=== PATIENT | female | born 1955 | race Caucasian/White ===

== ENCOUNTER 2020-03-21 12:18 | Outpatient (REF) | payer MEDICARE, OTHER, SELFPAY ==
[2020-03-21 13:44] LABS: Estimated Average Glucose 151 mg/dL; Hemoglobin A1c % 6.9 %
== END 2020-03-21 12:19 | disposition home or self-care (01) ==
LOC: HO.MANLR 12:18
PROVIDERS: PCP Physician Assistant; Visit Provider Physician Assistant
DX: E11.9 Type 2 diabetes mellitus without complications (principal); E78.5 Hyperlipidemia, unspecified
CPT/HCPCS: 83036

== ENCOUNTER 2020-06-27 08:23 | Outpatient (REF) | payer MEDICARE, OTHER, SELFPAY ==
[2020-06-27 11:34] LABS: Estimated Average Glucose 148 mg/dL; Hemoglobin A1c % 6.8 %
[2020-06-27 11:45] LABS: Alanine Aminotransferase 13 U/L (0-31); Albumin Level 4.1 g/dL (3.5-5.0); Alkaline Phosphatase 54 U/L (39-117); Anion Gap 15 (12-20); Aspartate Amino Transferase 14 U/L (5-31); Bilirubin Total 0.6 mg/dL (0.0-1.0); Blood Urea Nitrogen 16 mg/dL (9-16); Carbon Dioxide 29 mmol/L (22-29); Chloride 101 mmol/L (96-108); Cholesterol 171 mg/dL; Estimated Glomerular Filt Rate > 60; Glucose Fasting 125 mg/dL (60-99); HDL Cholesterol 64 mg/dL; LDL Cholesterol Calculated 87 mg/dl; Potassium 4.4 mmol/L (3.3-5.1); Sodium 141 mmol/L (135-145); Total Protein 7.4 g/dL (6.5-8.0); Triglycerides 104 mg/dL
== END 2020-06-27 08:24 | disposition home or self-care (01) ==
LOC: HO.MANLR 08:23
PROVIDERS: PCP Internal Medicine; Visit Provider Physician Assistant
DX: E11.9 Type 2 diabetes mellitus without complications (principal); E78.5 Hyperlipidemia, unspecified
CPT/HCPCS: 36415; 80053; 80061; 83036

== ENCOUNTER 2020-10-15 07:34 | Outpatient (REF) | payer MEDICARE, OTHER, SELFPAY ==
[2020-10-15 11:23] LABS: Estimated Average Glucose 146 mg/dL; Hemoglobin A1c % 6.7 %
[2020-10-15 11:30] LABS: Alanine Aminotransferase 15 U/L (0-31); Albumin Level 4.2 g/dL (3.5-5.0); Alkaline Phosphatase 51 U/L (39-117); Anion Gap 15 (12-20); Aspartate Amino Transferase 15 U/L (5-31); Bilirubin Total 0.7 mg/dL (0.0-1.0); Blood Urea Nitrogen 19 mg/dL (9-16); Calcium 9.3 mg/dL (8.4-10.2); Carbon Dioxide 28 mmol/L (22-29); Chloride 103 mmol/L (96-108); Cholesterol 172 mg/dL; Estimated Glomerular Filt Rate > 60; Glucose Fasting 127 mg/dL (60-99); HDL Cholesterol 74 mg/dL; LDL Cholesterol Calculated 79 mg/dl; Potassium 4.3 mmol/L (3.3-5.1); Sodium 142 mmol/L (135-145); Total Protein 7.3 g/dL (6.5-8.0); Triglycerides 98 mg/dL
[2020-10-15 12:05] LABS: Creatinine Urine 54.16 mg/dL; Microalbum/Creatinine Ratio Ur 20.3 ug/mg cr
== END 2020-10-15 07:35 | disposition home or self-care (01) ==
LOC: HO.MANLDS 07:34
PROVIDERS: PCP Internal Medicine; Visit Provider Physician Assistant
DX: E11.9 Type 2 diabetes mellitus without complications (principal)
CPT/HCPCS: 36415; 80053; 80061; 82043; 83036

== ENCOUNTER 2021-02-11 07:34 | Outpatient (REF) | payer MEDICARE, OTHER, SELFPAY ==
[2021-02-11 11:06] LABS: Estimated Average Glucose 140 mg/dL; Hemoglobin A1c % 6.5 %
== END 2021-02-11 07:35 | disposition home or self-care (01) ==
LOC: HO.MANLDS 07:34
PROVIDERS: PCP Internal Medicine; Visit Provider Internal Medicine
DX: E11.9 Type 2 diabetes mellitus without complications (principal)
CPT/HCPCS: 36415; 83036

== ENCOUNTER 2021-06-10 07:31 | Outpatient (REF) | payer MEDICARE, OTHER, SELFPAY ==
[2021-06-10 11:12] LABS: Estimated Average Glucose 146 mg/dL; Hemoglobin A1c % 6.7 %
== END 2021-06-10 07:32 | disposition home or self-care (01) ==
LOC: HO.MANLDS 07:31
PROVIDERS: PCP Internal Medicine; Visit Provider Internal Medicine
DX: E11.9 Type 2 diabetes mellitus without complications (principal)
CPT/HCPCS: 36415; 83036

== ENCOUNTER 2021-09-09 07:40 | Outpatient (REF) | payer MEDICARE, OTHER, SELFPAY ==
[2021-09-09 11:57] LABS: Estimated Average Glucose 146 mg/dL; Hemoglobin A1c % 6.7 %
[2021-09-09 12:35] LABS: Alanine Aminotransferase 14 U/L (0-31); Albumin Level 4.2 g/dL (3.5-5.0); Alkaline Phosphatase 51 U/L (39-117); Anion Gap 16 (12-20); Aspartate Amino Transferase 17 U/L (5-31); Bilirubin Total 0.7 mg/dL (0.0-1.0); Blood Urea Nitrogen 19 mg/dL (9-16); Calcium 9.6 mg/dL (8.4-10.2); Carbon Dioxide 26 mmol/L (22-29); Chloride 101 mmol/L (96-108); Cholesterol 169 mg/dL; Estimated Glomerular Filt Rate > 60; Glucose Fasting 130 mg/dL (60-99); HDL Cholesterol 69 mg/dL; LDL Cholesterol Calculated 82 mg/dl; Potassium 4.4 mmol/L (3.3-5.1); Sodium 139 mmol/L (135-145); Total Protein 7.5 g/dL (6.5-8.0); Triglycerides 90 mg/dL
== END 2021-09-09 07:41 | disposition home or self-care (01) ==
LOC: HO.MANLDS 07:40
PROVIDERS: PCP Internal Medicine; Visit Provider Internal Medicine
DX: E11.9 Type 2 diabetes mellitus without complications (principal)
CPT/HCPCS: 36415; 80053; 80061; 82043; 83036

== ENCOUNTER 2022-01-20 07:57 | Outpatient (REF) | payer MEDICARE, OTHER, SELFPAY ==
[2022-01-20 11:52] LABS: Estimated Average Glucose 140 mg/dL; Hemoglobin A1c % 6.5 %
[2022-01-20 12:13] LABS: Alanine Aminotransferase 13 U/L (0-31); Alkaline Phosphatase 49 U/L (39-117); Anion Gap 17 (12-20); Aspartate Amino Transferase 12 U/L (5-31); Bilirubin Total 0.7 mg/dL (0.0-1.0); Blood Urea Nitrogen 16 mg/dL (9-16); Calcium 9.3 mg/dL (8.4-10.2); Carbon Dioxide 27 mmol/L (22-29); Chloride 103 mmol/L (96-108); Cholesterol 171 mg/dL; Estimated Glomerular Filt Rate > 60; Glucose Random 147 mg/dL (60-115); HDL Cholesterol 66 mg/dL; LDL Cholesterol Calculated 87 mg/dl; Potassium 4.7 mmol/L (3.3-5.1); Sodium 142 mmol/L (135-145); Total Protein 7.4 g/dL (6.5-8.0); Triglycerides 92 mg/dL
== END 2022-01-20 07:58 | disposition home or self-care (01) ==
LOC: HO.MANLDS 07:57
PROVIDERS: Visit Provider Internal Medicine
DX: E11.9 Type 2 diabetes mellitus without complications (principal)
CPT/HCPCS: 36415; 80053; 80061; 83036

== ENCOUNTER 2022-07-07 07:35 | Outpatient (REF) | payer MEDICARE, OTHER, SELFPAY ==
[2022-07-07 12:15] LABS: Estimated Average Glucose 143 mg/dL; Hemoglobin A1c % 6.6 %
[2022-07-07 12:50] LABS: Alanine Aminotransferase 10 U/L (0-31); Albumin Level 3.9 g/dL (3.5-5.0); Alkaline Phosphatase 50 U/L (39-117); Anion Gap 11 (12-20); Aspartate Amino Transferase 13 U/L (5-31); Bilirubin Total 0.9 mg/dL (0.0-1.0); Blood Urea Nitrogen 15 mg/dL (9-16); Calcium 9.1 mg/dL (8.4-10.2); Carbon Dioxide 28 mmol/L (22-29); Chloride 106 mmol/L (96-108); Cholesterol 168 mg/dL; Estimated Glomerular Filt Rate > 60; Glucose Random 130 mg/dL (60-115); HDL Cholesterol 69 mg/dL; LDL Cholesterol Calculated 84 mg/dl; Potassium 4.2 mmol/L (3.3-5.1); Sodium 141 mmol/L (135-145); Total Protein 6.8 g/dL (6.5-8.0); Triglycerides 76 mg/dL
== END 2022-07-07 07:36 | disposition home or self-care (01) ==
LOC: HO.MANLDS 07:35
PROVIDERS: Visit Provider Internal Medicine
DX: E11.9 Type 2 diabetes mellitus without complications (principal)
CPT/HCPCS: 36415; 80053; 80061; 83036

== ENCOUNTER 2022-11-03 07:47 | Outpatient (REF) | payer MEDICARE, OTHER, SELFPAY ==
[2022-11-03 12:07] LABS: Alanine Aminotransferase 11 U/L (0-31); Albumin Level 3.9 g/dL (3.5-5.0); Alkaline Phosphatase 48 U/L (39-117); Anion Gap 15 (12-20); Aspartate Amino Transferase 14 U/L (5-31); Bilirubin Total 0.9 mg/dL (0.0-1.0); Blood Urea Nitrogen 17 mg/dL (9-16); Calcium 9.8 mg/dL (8.4-10.2); Carbon Dioxide 26 mmol/L (22-29); Chloride 104 mmol/L (96-108); Cholesterol 172 mg/dL; Estimated Glomerular Filt Rate > 60; Glucose Random 135 mg/dL (60-115); HDL Cholesterol 69 mg/dL; LDL Cholesterol Calculated 86 mg/dl; Potassium 3.9 mmol/L (3.3-5.1); Sodium 141 mmol/L (135-145); Total Protein 7.5 g/dL (6.5-8.0); Triglycerides 89 mg/dL
[2022-11-03 12:14] LABS: Creatinine Urine 70.17 mg/dL; Microalbum/Creatinine Ratio Ur 22.8 ug/mg cr
[2022-11-03 14:26] LABS: Estimated Average Glucose 137 mg/dL; Hemoglobin A1c % 6.4 %
== END 2022-11-03 07:48 | disposition home or self-care (01) ==
LOC: HO.MANLDS 07:47
PROVIDERS: Visit Provider Internal Medicine
DX: E11.9 Type 2 diabetes mellitus without complications (principal)
CPT/HCPCS: 36415; 80053; 80061; 82043; 83036

== ENCOUNTER 2023-02-16 07:39 | Outpatient (REF) | payer MEDICARE, OTHER, SELFPAY ==
[2023-02-16 13:34] LABS: Estimated Average Glucose 137 mg/dL; Hemoglobin A1c % 6.4 % (<6.0)
== END 2023-02-16 07:40 | disposition home or self-care (01) ==
LOC: HO.MANLDS 07:39
PROVIDERS: Visit Provider Internal Medicine
DX: E11.9 Type 2 diabetes mellitus without complications (principal)
CPT/HCPCS: 36415; 83036

== ENCOUNTER 2023-06-01 07:34 | Outpatient (REF) | payer MEDICARE, OTHER, SELFPAY ==
[2023-06-01 14:09] LABS: Estimated Average Glucose 131 mg/dL; Hemoglobin A1c % 6.2 % (<6.0)
== END 2023-06-01 07:35 | disposition home or self-care (01) ==
LOC: HO.MANLDS 07:34
PROVIDERS: Visit Provider Internal Medicine
DX: E11.9 Type 2 diabetes mellitus without complications (principal); I10 Essential (primary) hypertension
CPT/HCPCS: 36415; 83036

== ENCOUNTER 2023-10-26 07:40 | Outpatient (REF) | payer MEDICARE, OTHER, SELFPAY ==
[2023-10-28 09:08] LABS: CA-125 7 U/mL (<35)
== END 2023-10-26 07:41 | disposition home or self-care (01) ==
LOC: HO.MANLDS 07:40
PROVIDERS: Visit Provider Internal Medicine
DX: Z13.89 Encounter for screening for other disorder (principal); Z80.41 Family history of malignant neoplasm of ovary
CPT/HCPCS: 36415; 83036; 86304

== ENCOUNTER 2024-02-15 09:20 | Outpatient (REF) | payer MEDICARE, OTHER, SELFPAY ==
[2024-02-15 13:35] LABS: MANUAL DIFF FLAG NO
[2024-02-15 13:55] LABS: Basophils Percent Auto 0.5 % (0-2); Eosinophils Absolute Auto 0.1 X10*3/uL (0.0-0.4); Eosinophils Percent Auto 2.2 % (0-4); Hematocrit 41.2 % (37.0-47.0); Hemoglobin 13.4 g/dl (12.0-16.0); Imm Gran Abs Auto 0.02 X10*3/uL (0.00-0.03); Imm Gran Pct Auto 0.3 % (0.0-0.4); Lymphocytes Absolute Auto 2.5 X10*3/uL (1.2-4.9); Lymphocytes Percent Auto 42.1 % (20-40); Mean Corpuscular HGB Conc 32.5 g/dl (31.0-35.0); Mean Corpuscular Volume 83.1 fL (80.0-98.0); Monocytes Absolute Auto 0.5 X10*3/uL (0.1-1.2); Monocytes Percent Auto 8.1 % (2-11); Neutrophils Absolute Auto 2.8 x10*3/uL (2.0-8.3); Neutrophils Percent Auto 46.8 % (45-73); Red Blood Count 4.96 X10*6/uL (4.20-5.50); Red Cell Distribution Width 13.8 % (11.0-16.0)
[2024-02-15 14:11] LABS: Alanine Aminotransferase 12 U/L (0-31); Albumin Level 4.3 g/dL (3.5-5.0); Alkaline Phosphatase 46 U/L (39-117); Anion Gap 13 (12-20); Aspartate Amino Transferase 17 U/L (5-31); Bilirubin Total 0.6 mg/dL (0.0-1.0); Blood Urea Nitrogen 20 mg/dL (9-16); Calcium 9.6 mg/dL (8.4-10.2); Carbon Dioxide 27 mmol/L (22-29); Chloride 105 mmol/L (96-108); Cholesterol 172 mg/dL (<200); Estimated Glomerular Filt Rate > 60; Glucose Random 122 mg/dL (60-115); HDL Cholesterol 75 mg/dL (>40); LDL Cholesterol Calculated 80 mg/dL (<100); Potassium 4.1 mmol/L (3.3-5.1); Sodium 141 mmol/L (135-145); Total Protein 7.9 g/dL (6.5-8.0); Triglycerides 88 mg/dL (<150)
[2024-02-15 14:36] LABS: Estimated Average Glucose 134 mg/dL; Hemoglobin A1C 149.9896 umol/L; Hemoglobin A1c % 6.3 % (<6.0)
[2024-02-15 18:27] LABS: Mean Platelet Volume 10.6 fL (9.4-12.3); Platelet Count 90 X10*3/uL (160-400)
== END 2024-02-15 09:21 | disposition home or self-care (01) ==
LOC: HO.MANLDS 09:20
PROVIDERS: Visit Provider Internal Medicine
DX: E11.9 Type 2 diabetes mellitus without complications (principal); I10 Essential (primary) hypertension; E78.5 Hyperlipidemia, unspecified
CPT/HCPCS: 36415; 80053; 80061; 83036; 85025

== ENCOUNTER 2024-08-22 07:33 | Outpatient (REF) | payer MEDICARE, OTHER, SELFPAY ==
--- OUTSIDE RECORDS SUMMARY | 2024-08-22 07:38 | XMS_ITS | Data Portability ---
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) MDM MODERATE MUST MEET 2 OUT OF 3 ELEMENTS: PROBLEMS, DATA OR RISK ELEMENT 1: PROBLEMS ADDRESSED 1 OR MORE CHRONIC ILLNESS WITH EXACERBATION OR 2 OR MORE STABLE CHRONIC ILLNESSES OR 1 UNDIAGNOSED NEW PROBLEM OR 1 ACUTE ILLNESS W/SYMPTOMS OR 1 ACUTE COMPLICATED INJURY ELEMENT 2: DATA MUST MEET 1 OF 3 CATEGORIES CATEGORY 1: REVIEW OF PRIOR EXTERNAL NOTES, REVIEW OF RESULTS, ORDERING OF EACH TEST, ASSESSMENT REQUIRING INDEPENDENT HISTORIAN OR CATEGORY 2: INDEPENDENT INTERPRETATION OF TESTS BY ANOTHER PHYSICIAN OR SPECIALIST OR CATEGORY 3: DISCUSSION OF MGT OR TEST INTERPRETATION W/EXTERNAL PHYSICIAN OR SPECIALIST ELEMENT 3: RISK RISK OF COMPLICATIONS AND/OR MORBIDITY OR MORTALITY OF PATIENT MANAGEMENT PROVIDER MUST THOROUGHLY DOCUMENT EACH ELEMENT THAT IS COVERED Not available 01/31/2023 12:43:30 06/13/2023 06/13/2023 [id number] [place] [id number] (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) MDM MODERATE MUST MEET 2 OUT OF 3 ELEMENTS: PROBLEMS, DATA OR RISK ELEMENT 1: PROBLEMS ADDRESSED 1 OR MORE CHRONIC ILLNESS WITH EXACERBATION OR 2 OR MORE STABLE CHRONIC ILLNESSES OR 1 UNDIAGNOSED NEW PROBLEM OR 1 ACUTE ILLNESS W/SYMPTOMS OR 1 ACUTE COMPLICATED INJURY ELEMENT 2: DATA MUST MEET 1 OF 3 CATEGORIES CATEGORY 1: REVIEW OF PRIOR EXTERNAL NOTES, REVIEW OF RESULTS, ORDERING OF EACH TEST, ASSESSMENT REQUIRING INDEPENDENT HISTORIAN OR CATEGORY 2: INDEPENDENT INTERPRETATION OF TESTS BY ANOTHER PHYSICIAN OR SPECIALIST OR CATEGORY 3: DISCUSSION OF MGT OR TEST INTERPRETATION W/EXTERNAL PHYSICIAN OR SPECIALIST ELEMENT 3: RISK RISK OF COMPLICATIONS AND/OR MORBIDITY OR MORTALITY OF PATIENT MANAGEMENT PROVIDER MUST THOROUGHLY DOCUMENT EACH ELEMENT THAT IS COVERED Not available 06/13/2023 14:09:05 11/07/2023 11/07/2023 [id number] [place] [id number] (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) MDM MODERATE MUST MEET 2 OUT OF 3 ELEMENTS: PROBLEMS, DATA OR RISK ELEMENT 1: PROBLEMS ADDRESSED 1 OR MORE CHRONIC ILLNESS WITH EXACERBATION OR 2 OR MORE STABLE CHRONIC ILLNESSES OR 1 UNDIAGNOSED NEW PROBLEM OR 1 ACUTE ILLNESS W/SYMPTOMS OR 1 ACUTE COMPLICATED INJURY ELEMENT 2: DATA MUST MEET 1 OF 3 CATEGORIES CATEGORY 1: REVIEW OF PRIOR EXTERNAL NOTES, REVIEW OF RESULTS, ORDERING OF EACH TEST, ASSESSMENT REQUIRING INDEPENDENT HISTORIAN OR CATEGORY 2: INDEPENDENT INTERPRETATION OF TESTS BY ANOTHER PHYSICIAN OR SPECIALIST OR CATEGORY 3: DISCUSSION OF MGT OR TEST INTERPRETATION W/EXTERNAL PHYSICIAN OR SPECIALIST ELEMENT 3: RISK RISK OF COMPLICATIONS AND/OR MORBIDITY OR MORTALITY OF PATIENT MANAGEMENT PROVIDER MUST THOROUGHLY DOCUMENT EACH ELEMENT THAT IS COVERED Not available 11/07/2023 15:22:46 03/05/2024 03/05/2024 Patient presente d to office today for their Medicare Annual Wellness Visit. Education was provided on healthy nutrition, including a diet rich in fruits and vegetables, minimizing simple carbohydrates, salt, and saturated fats. Encouraged regular cardiovascular exercise such as walking at least 30 minutes daily, 5 times per week. Emphasized preventive health measures and educated pt on fall prevention and community-based lifestyle interventions to help reduce health risks and promote healthy living. 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) MDM MODERATE MUST MEET 2 OUT OF 3 ELEMENTS: PROBLEMS, DATA OR RISK ELEMENT 1: PROBLEMS ADDRESSED 1 OR MORE CHRONIC ILLNESS WITH EXACERBATION OR 2 OR MORE STABLE CHRONIC ILLNESSES OR 1 UNDIAGNOSED NEW PROBLEM OR 1 ACUTE ILLNESS W/SYMPTOMS OR 1 ACUTE COMPLICATED INJURY ELEMENT 2: DATA MUST MEET 1 OF 3 CATEGORIES CATEGORY 1: REVIEW OF PRIOR EXTERNAL NOTES, REVIEW OF RESULTS, ORDERING OF EACH TEST, ASSESSMENT REQUIRING INDEPENDENT HISTORIAN OR CATEGORY 2: INDEPENDENT INTERPRETATION OF TESTS BY ANOTHER PHYSICIAN OR SPECIALIST OR CATEGORY 3: DISCUSSION OF MGT OR TEST INTERPRETATION W/EXTERNAL PHYSICIAN OR SPECIALIST ELEMENT 3: RISK RISK OF COMPLICATIONS AND/OR MORBIDITY OR MORTALITY OF PATIENT MANAGEMENT PROVIDER MUST THOROUGHLY DOCUMENT EACH ELEMENT THAT IS COVERED Not available 06/06/2024 14:43:57 Plan of Treatment Reminders Order Date Submit Date Provider Last Modified By Organization Details Last Modified Time Details Appointments FOLLOW UP 15 2024 03:30P Fili MCCRAY Not available Not available Not available MEDICARE ANNUAL WELLNESS 2024 03:30P M DR MCCRAY Not available Not available Not available Lab lipid panel, blood 2023 024 [facility], [address] [place] [address], [id number], 03/05/2024 14:14:35 HbA1c (hemoglob in A1c), blood 2023 024 [facility], [address] [place] [address], [id number], 03/05/2024 14:24:59 CBC w/ auto diff 2023 024 [facility], [address] [place] [address], [id number], 03/05/2024 14:14:35 CMP, serum or plasma 2023 024 [facility], [address] [place] [address], [id number], 06/05/2024 14:45:23 HbA1c (hemoglob in A1c), blood 2023 024 [facility], [address] [place] [address], [id number], 06/13/2023 14:11:07 CMP, serum or plasma 2023 024 [facility], [address] [place] [address], [id number], 06/13/2023 14:07:55 ca 125, serum 2023 024 [facility], [address] [place] [address], [id number], 10/28/2023 11:29:37 CBC w/ auto diff 2023 024 [facility], [address] [place] [address], [id number], 06/13/2023 14:07:55 lipid panel, blood 2023 [facility], [address] [place] [address], [place], [id number], 06/13/2023 14:07:55 Referral None recorded. Procedures None recorded. Surgeries None recorded. Imaging MAMMO, screening , digital, bilateral 2023 [email or web address] Not available 03/19/2024 08:15:17 bone density 2023 024 [facility] Not available 03/19/2024 08:15:17 bone density 2023 [email or web address] Not available 06/27/2023 08:57:14 Medication Orders EpiPen 2-Tomasz 0.3 mg/0.3 mL injection , auto-inje ctor 2023 [id number], [address] [place] [address], [id number], 11/07/2023 15:26:29 OneTouch Ultra Test strips 2023 024 [facility], [facility], [place], [address], 11/07/2023 15:24:25 folic acid 400 mcg tablet 2023 024 [facility], [place], [address], 11/07/2023 15:24:25 Patient TargetsNo targets recorded. Patient Instructions Encounter Date Encounter Id Patient Instructions Last Modified By Organization Details Last Modified Time 06/13/2023 [id number] osteoporosis: care instructions Not available 06/13/2023 14:06:24 03/05/2024 [id number] type 2 diabetes: care instructions Not available 03/05/2024 14:13:17 advance care planning: care instructions Not available 03/05/2024 14:13:17 Discussed and explained advance directives such as standard forms to the {{patient* caregi khushboo patient and caregiver}}. Face to face discussion lasted for a duration of 10___ minutes. Not available 03/05/2024 14:13:00 Reason for Referral None Reported. Results Created Date Observation Date Name Description Value Unit Range Abnormal Flag Note LastModifiedBy Organization Detail LastModifiedTime 03/10/2003/07/2023 MAMMO , scree cristino, digit al, bilat eral No observ ation record ed. [address], [address], 03/10/2023 15:31:24 03/23/20 24 03/22/2024 MAMMO , scree cristino, digit al, bilat eral No observ ation record ed. [email or web address] - Callback Orders Only [address] [place] [address], [id number], 03/23/2024 09:04:18 Result Notes None recorded. Problems Name Problem SNOMED Code Status Onset Date Resolution Date Notes Provider Name and Address Organization Details Recorded Time Recurren t urinary tract infectio n 845410461 Active 2021 Erica price [facility] 4 09:41:09 Osteopen ia 813448260 Completed 202106/13/2023 Raheem Mccray DO [address] [place] [address], [phone], [facility] 4 14:00:15 Osteopor osis 09868081 Active 2022 Erica price [facility] 4 09:41:09 Type 2 diabetes mellitus without complica tion 349243399 Active 2023 Erica price [facility] 4 09:41:09 Allergic reaction to bee sting 995191325 Active 2023 Raheem Mccray DO [address] [place] [address], [phone], [facility] 4 15:25:49 [facility] hyperten gilberto 40511482 Active 2017 [facility] 4 09:41:09 Hyperlip idemia 03809052 Active 2017 [facility] 4 09:41:09 Type 2 diabetes mellitus 45441198 Active 2017 [facility] 4 09:41:09 Allergy to bee venom 192234761 Active 2017 [facility] 4 09:40:56 Obesity 726086768 Active 2017 [facility] 4 09:41:09 Fracture of ankle 04294687 Completed 201706/13/2023 with pins Raheem Mccray, DO [address] [place] [address], [phone], [facility] 4 14:00:26 Arthriti s 0271593 Active 2017 Right ankle [facility] 4 09:41:09 Ulcer of medial malleolu s 590526337 Active 2017 ankle [facility] 4 09:41:09 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 Procedures Surgical History None recorded. Imaging Results Imaging Date Name Status LastModified by Organiz ation Details LastModified Time 03/07/2023 MAMMO, screening, digital, bilateral completed [address], [address], 03/10/2023 15:31:24 03/22/2024 MAMMO, screening, digital, bilateral completed [email or web address] [facility] - Callback Orders Only [address] [place], [address], 03/23/2024 09:04:18 Procedure Notes None recorded. Medical Equipment None Reported. Allergies No known drug allergies Medications Name Sig Start Date Stop Date Status Note LastModified by Organization Details LastModified Time Prescriptio n - Change 05/24 completed Not Available Not Available Not Available cyclobenzap rine 10 mg tablet TAKE 1 TABLET BY MOUTH TWICE DAILY NEEDED active Not Available Not Available No t Available metformin 500 mg tablet TAKE 1 TABLET TWICE A DAY active Not Available Not Available No t Available lisinopril 20 mg tablet TAKE 1 TABLET DAILY 2024 active Not Available Not Available Not Avai lable Diflucan 150 mg tablet Take 1 tablet every day by oral route for 3 days. 01/18 completed Not Available Not Available Not Available folic acid 400 mcg tablet Take 1 tablet every day by oral route for 90 days. 2023 active Not Available Not Available Not Avai lable OneTouch Ultra Test strips USE AND DISCARD 1 TEST STRIP TWO TIMES A DAY active Not Available Not Available No t Available cephalexin 500 mg capsule TAKE ONE CAP PRN AFTER INTERCOUR SE TO PRVENT URINARY TRACT INFECTION 03/05 completed Not Available Not Available Not Available triamcinolo ne acetonide 0.1 % topical ointment APPLY A THIN LAYER TO THE AFFECTED AREA(S) BY TOPICAL ROUTE 2 TIMES PER DAY 02/10 completed Not Available Not Available Not Available lisinopril 10 mg tablet TAKE 1 TABLET ONCE DAILY 11/08 completed Not Available Not Available Not Available cephalexin 500 mg tablet TAKE 1 TABLET AFTER INTERCOUR SE TO PREVENT URINARY TRACT INFECTION active Not Available Not Available No t Available nystatin 100,000 unit/gram topical powder APPLY TO THE AFFECTED AREA(S) BY TOPICAL ROUTE 2 TIMES PER DAY 02/27 completed Not Available Not Available Not Available epinephrine 0.3 mg/0.3 mL injection, auto-inject or INJECT 1 PEN IN THE MUSCLE ONE TIME DIRECTED MAY REPEAT DOSE X1 AFTER 5-15 MINS IF NEEDED THEN CALL 911 active Not Available Not Available No t Available lovastatin 20 mg tablet TAKE 1 TABLET ONCE DAILY 2024 active Not Available Not Available Not Avai lable naproxen 500 mg tablet TAKE 1 TABLET BY MOUTH TWICE DAILY WITH MEALS. active Not Available Not Available No t Available ibandronate 150 mg tablet Take 1 tablet every month by oral route for 90 days. active Not Available Not Available No t Available calcium Take one tablet once a day active Not Available Not Available No t Available Glucosamine 2000 mg take one tablet twice a day active Not Available Not Available No t Available GaviLyte-G 236 gram-22.74 gram-6.74 gram-5.86 gram oral solution 07/15 completed Not Available Not Available Not Available Vitamin D3 50 mcg (2,000 unit) capsule Take 1 capsule every day by oral route. active Not Available Not Available No t Available OneTouch Ultra Blue Test Strip use one strip per day 03/15 completed Not Available Not Available Not Available Fluad Quad 3609-6948(6 5yr up)(PF) 60 mcg (15 mcg x 4)/0.5mL IM syringe ADMINISTE R 0.5ML IN THE MUSCLE DIRECTED 10/20 completed Not Available Not Available Not Available Vitals Date Recorded Body height Body mass index (BMI) Body weight Heart rate Oxygen saturation Oxygen saturation in Arterial blood by Pulse oximetry Systolic blood pressure Diastolic blood pressure Provider Name and Address Organization Details Last Updated DateTime 3 153.04 cm 38 kg/m2 97522.1 g 88 /min 98 % 98 % 138 mm[Hg] 84 mm[Hg] Raheem Mccray, [address] [place], [address] [place], [place] - [facility] 3 11:47:01 Date Recorded Body height Body mass index (BMI) Body weight Heart rate Oxygen saturation Oxygen saturation in Arterial blood by Pulse oximetry Systolic blood pressure Diastolic blood pressure Provider Name and Address Organization Details Last Updated DateTime 4 153.04 cm 39.2 kg/m2 80858.8 1 g 84 /min 96 % 96 % 146 mm[Hg] 89.99 mm[Hg] Erica Carter [facility] 4 15:02:38 Date Recorded Body height Body mass index (BMI) Body weight Heart rate Oxygen saturation Oxygen saturation in Arterial blood by Pulse oximetry Systolic blood pressure Diastolic blood pressure Provider Name and Address Organization Details Last Updated DateTime 4 153.04 cm 38.3 kg/m2 44279.2 9 g 84 /min 98 % 98 % 124 mm[Hg] 80 mm[Hg] Leland Garces [facility] 4 13:56:27 Date Recorded Body height Body mass index (BMI) Body weight Heart rate Oxygen saturation Oxygen saturation in Arterial blood by Pulse oximetry Systolic blood pressure Diastolic blood pressure Provider Name and Address Organization Details Last Updated DateTime 5 153.04 cm 38.3 kg/m2 43982.2 9 g 86 /min 98 % 98 % 128 mm[Hg] 80 mm[Hg] Clarisse Espinosa [facility] 5 14:20:22 Social History Question Answer Notes LastModified by Organizat ion Details LastModified Time Tobacco Smoking Status Never Smoker Not Available [facility] 03/18/2020 03:36:24 What Was The Date Of Your Most Recent Tobacco Screening? 06/06/2024 [email or web address] Information not available 06/06/2024 Do You Or Have You Ever Used Any Other Forms Of Tobacco Or Nicotine? No Information not available 07/23/2022 Sex: Unknown Functional Status None recorded. Mental Status None recorded. Family History Nothing Reported. Medical History No medical history recorded. Gynecological HistoryNo gynecological history recorded. Obstetrics History GPAL:G 0 P 0 0 0 0 Immunizations Vaccine Type Date Status Note Provider Nam e and Address Organization Details Recorded Time Influenza, split virus, quadrivalent, preservative 01/31/20 18 completed Billie price [facility] 02/10/2018 14:19:39 pneumococcal polysaccharide PPV23 10/03/19 22 completed Raheem Mccray, [address] [place], [address], [facility] 10/03/2021 13:45:12 Influenza, split virus, quadrivalent, preservative 03/01/20 22 completed Raheem Mccray DO [address] [place] [address], [phone], [facility] 03/15/2022 14:35:45 influenza, unspecified formulation 02/14/20 24 completed Raheem Mccray DO [address] [place] [address], [address], [facility] 03/05/2024 14:10:52 Td (adult) 03/06/20 02 completed Billie price [facility] 05/24/2018 13:50:17 Tdap 05/11/20 11 completed [facility] 05/24/2018 13:50:35 Influenza, split virus, quadrivalent, preservative 02/14/20 19 completed DYLAN Dey [address] [place] [address], [address], [facility] 07/04/2019 14:42:28 COVID-19, mRNA, LNP-S, PF, 30 mcg/0.3 mL dose 06/18/19 21 completed [facility] 07/15/2020 14:23:29 COVID-19, mRNA, LNP-S, PF, 30 mcg/0.3 mL dose 07/09/19 21 completed Billie price [facility] 07/15/2020 14:24:22 Pneumococcal conjugate PCV 13 07/03/19 16 completed Raheem Mccray DO [address] [place] [address], [address], [facility] 10/20/2020 14:05:03 zoster recombinant 03/05/20 15 completed Raheem Mccray DO [address] [place] [address], [address], [facility] 10/20/2020 14:05:22 Past Encounters Encounter ID Performer Location Encounter Start Date Encounter Closed Date Diagnosis/Indication Diagnosis SNOMED-CT Code Diagnosis ICD10 Code Diagnosis Note [id number] [facility] [address] [facility] [place] [id number] 11/04/2017 13:21:32 11/04/2017 14:08:21 Type 2 diabetes mellitus 91571811 E11.9 good control will try to work on diet and see if metforming continues to cause GI upset/diar elvi Hyperlipidemia 40014869 E78.00 good control check 3 months Essential hypertension 28414302 I10 stable goon control Venereal d isease screening 450807321 Z11.3 Allergy to bee venom 424 742046 Z91.030 [id number] [facility] [address] [facility] [place] [address] 01/04/2018 14:44:23 01/04/2018 15:54:53 Candidal intertrigo 944000191 B37.2 Eczema 70969125 L30.9 Essential hypertension 17819478 I10 mildly elevated recheck at f/u in 2 weeks Body mass index 40+ - severely obese 106679987 Z68.41 diet and exercise as previously discussed [id number] [facility] [address] [facility] [address] 01/18/2018 13:16:43 01/18/2018 13:52:09 Candidal intertrigo 924003262 B37.2 resolved - continue nystatin as needed Eczema 26449821 L30.9 greatly improved, continue ointment until gone Essential hypertension 19738529 I10 better today on lisinopril Body mass index 40+ - severely obese 471716777 Z68.41 diet and exercise as previously discussed [id number] [facility] [address] [facility] [place] [address] 02/10/2018 14:09:24 02/10/2018 14:41:00 Type 2 diabetes mellitus 44283883 E11.9 good control Hyperlipidemia 11047305 E78.00 good control check 6 months Essential hypertension 51379315 I10 stable goon control [id number] [facility] [address] [facility] [place] [address] 05/24/2018 13:40:46 05/24/2018 18:17:07 Type 2 diabetes mellitus 25541683 E11.9 good control Hyperlipidemia 25663219 E78.00 good control check 6 months Essential hypertension 35071761 I10 well controlled Body mass index 40+ - severely obese 753592567 Z68.41 diet and exercise as previously discussed Recurrent urinary tract infection 315570263 N39.0 takes cephalexin post coital [id number] Daphne Vora NP, [facility] [address] [facility] [address] 08/08/2018 14:07:27 08/08/2018 15:23:13 Allergy to bee venom 701879641 Z91.030 Type 2 lynda betes mellitus 56086603 E11.9 Hyperlipidemia 92535652 E78.2 on lovastatin Essential hypertension 68904283 I10 stable [id number] [facility] [address] [facility] [address] 11/21/2018 14:00:09 11/21/2018 14:54:26 Type 2 diabetes mellitus 80642283 E11.9 good control Hyperlipidemia 68654934 E78.00 good control check 6 months Essential hypertension 03055452 I10 well controlled Body mass index 40+ - severely obese 888785009 Z68.41 diet and exercise as previously discussed Recurrent urinary tract infection 704384961 N39.0 takes cephalexin post coital [id number] [facility] [address] [facility] [address] 02/27/2019 14:03:18 02/27/2019 14:53:49 Type 2 diabetes mellitus 41160794 E11.9 good control Hyperlipidemia 11815096 E78.00 good control check 6 months Essential hypertension 14630024 I10 well controlled Body mass index 40+ - severely obese 391984841 Z68.41 diet and exercise as previously discussed Allergy to bee venom 424 127811 Z91.030 [id number] [facility] [address] [facility] [address] 07/04/2019 14:08:04 07/04/2019 15:52:13 Type 2 diabetes mellitus 94336835 E11.9 good control, recheck cmp 6 months Hyperlipidemia 65172041 E78.00 good control check 6 months Essential hypertension 90204793 I10 not well controlled , but pt feels it is white coat, would like to check BP at home if remains above 140/90 plan to increase lisinopril from 10 to 20 mg pt will report findings Body mass index 40+ - severely obese 345380939 Z68.41 diet and exercise as previously discussed Allergy to bee venom 424 220266 Z91.030 Advance care planning 71 9495491 Z71.89 HCP - everton castilloe marya has the paper work at home [id number] MARIA LUISA CANTU [facility] [address] [facility] [place] [address] 10/03/2019 14:16:50 10/03/2019 15:13:24 Recurrent urinary tract infection 476241974 N39.0 refill of prescripti on Essential hypertension 72823179 I10 BP is stable at home on medication s based on home numbers which range from 110-120 / 70-80 mostly likely has white coat hypertensi on Hyperlipidemia 55983692 E78.5 no side effects with current medication stable on current medication , excellent numbers Type 2 lynda betes mellitus 25583658 E11.9 states her numbers have been really good [id number] MARIA LUISA CANTU [facility] [address] [facility] [place] [address] 01/01/2020 14:05:43 01/01/2020 14:37:43 Type 2 diabetes mellitus 91695862 E11.9 states her numbers have been really good Essential hypertension 80484158 I10 BP is stable at home on medication s based on home numbers which range from 110-120 / 70-80 mostly likely has white coat hypertensi on Hyperlipidemia 62674438 E78.5 no side effects with current medication stable on current medication , excellent numbers [id number] MARIA LUISA CANTU [facility] [address] [facility] [place] [address] 04/01/2020 14:17:37 04/01/2020 16:07:24 Type 2 diabetes mellitus 77110613 E11.9 states her numbers have been really good A1c is much better Essential hypertension 48321161 I10 BP is stable at home on medication s based on home numbers which range from 110-120 / 70-80 mostly likely has white coat hypertensi on Hyperlipidemia 84276465 E78.5 no side effects with current medication stable on current medication , excellent numbers [id number] MARIA LUISA CANTU [facility] Internal Medicine [address] [facility] on [place] [facility] [address] 07/15/2020 14:00:28 07/15/2020 15:14:44 Type 2 diabetes mellitus 13758090 E11.9 states her numbers have been really good A1c is much better, at 6.8% Essential hypertension 35671212 I10 BP is stable at home on medication s based on home numbers which range from 110-120 / 70-80 mostly likely has white coat hypertensi on Recurrent urinary tract infection 249437285 N39.0 refill of prescripti on Pain in right knee 43154 52101 37072 M25.561 probably osteo based on symptoms and presentati on will fu if it worsens with XR 81200 Raheem Mccray DO [facility] Internal Medicine [address] [facility] on [place] [address] 10/20/2020 13:53:37 10/20/2020 14:54:51 Type 2 diabetes mellitus 55622934 E11.9 doing much better with a1c down to 6.7!!!! cont exerciseab ove all if cont to do well and a1c is dropping will drop the metformin Essential hypertension 13317405 I10 bp is stable Hyperlipidemia 95831700 E78.5 Recurrent urinary tract infection 801499224 N39.0 doing well with current dosage Obesity 096630134 E66.9 now exercising e very day and is sandhya doing water aerobics 5x week [id number] Raheem Mccray DO [facility] Internal Medicine [address] [facility] on [place] [address] 02/16/2021 13:20:43 02/16/2021 14:01:11 Type 2 diabetes mellitus 60407442 E11.9 doing much better with a1c down to 6.7!!!! cont exercise above all if cont to do well and a1c is dropping will drop the metformin Essential hypertension 23269653 I10 bp is stable Body mass index 40+ - severely obese 716436556 Z68.41 long discussion 58040 Raheem Mccray [facility] [address] [facility],[place] [address] 06/15/2021 08:17:14 06/15/2021 14:06:17 Type 2 diabetes mellitus 95400072 E11.9 doing much better with a1c to 6.7 was at 6.5 cont exercise above all if cont to do well and a1c is dropping will drop the metformin Body mass index 40+ - severely obese 325457505 Z68.41 long discussion Essential hypertension 56920903 I10 bp is stable Allergy to bee venom 424 471450 Z91.030 92509 Raheem Mccray [facility] [address] [facility],[place] [address] 09/16/2021 14:45:17 09/16/2021 16:06:03 Type 2 diabetes mellitus 36291808 E11.9 doing much better with a1c at 6.9 nahd was down to 6.7 was at 6.5 cont exercise above all if cont to do well and a1c is dropping will drop the metformin Essential hypertension 38260787 I10 bp is stable Hyperlipidemia 42731863 E78.5 Active or passive immunization 448682243 Z23 will consider obzget60 and Tdap.....d oesn't wish to get new Shingles shot at this time [id number] Raheem Mccray [facility] [address] [facility],[place] [address] 03/15/2022 14:21:02 03/16/2022 08:54:54 Type 2 diabetes mellitus 85162446 E11.9 doing much better with a1c at 6.9 nahd was down to 6.7 was at 6.5 cont exercise above all if cont to do well and a1c is dropping will drop the metformin Essential hypertension 84221531 I10 bp is stable Active or passive immunization 382970399 Z23 patient advised she is due for flu shot, tdap & shingles Advance care planning 71 5802423 Z71.89 done Osteopenia 426595161 M85 .80 Recurrent urinary tract infection 204494132 N39.0 doing well with current dosage Arthritis 5542186 M19.90 right ankle noted from 1998 surgery Renewal of prescription 039439194 Z76.0 04204 Raheem Mccray [facility] [address] [facility], it[place] [address] 07/23/2022 11:40:41 07/23/2022 15:52:06 Type 2 diabetes mellitus 39426479 E11.9 doing much better with a1c is 6.6 !!!!she is dong great and we will cont the current regimen Essential hypertension 98033998 I10 bp is stabl Body mass index 40+ - severely obese 145814375 Z68.41 long discussion Osteopenia 481152645 M85 .80 60039 Raheem Mccray [facility] [address] [facility], [employer] [place] [address] 11/24/2022 13:53:12 11/24/2022 15:00:08 Type 2 diabetes mellitus 86441383 E11.9 doing much better with a1c is 6.6 !!!!she is dong great and we will cont the current regimen Hyperlipidemia 34829994 E78.5 we will be checking soon Essential hypertension 90669997 I10 bp is stable Advance care planning 71 4780705 Z71.89 done Osteopenia 151501993 M85 .80 75353 Raheem Mccray [facility] [address] [facility], [place] [address] 01/31/2023 11:38:30 01/31/2023 12:59:39 Essential hypertension 68599394 I10 bp is stable Hyperlipidemia 30873310 E78.5 we will be checking soon Type 2 lynda betes mellitus 41352340 E11.9 prior a1c is 6.6 !!!! she is due for repeat test now home glucose are excellents he is dong great and we will cont the current regimen Osteopenia 167505939 M85 .80 we will hold off on ibandronat e and rechk bone density in [id number] Raheem Mccray [facility] [address] [facility],[place] [facility] [place] [address] 06/13/2023 08:28:37 06/13/2023 14:31:29 Type 2 diabetes mellitus without complication 390186770 E11.9 a1c is 6.2 Body mass index 40+ - severely obese 242862760 Z68.41 long discussion Essential hypertension 23870616 I10 bp is stable Hyperlipidemia 08288337 E78.5 we will be checking soon Osteoporosis 68192689 M8 1.0 she is taking vit d and ca+ will order the test Family his tory of malignant neoplasm of ovary 614657408 Z80.41 maternal; grandmopth er with ovarian ca pt wishes to have tested [id number] Raheem Mccray [facility] [address] [facility],[place] [address] 11/07/2023 14:46:24 11/07/2023 15:30:34 Depression screening 220494153 Z13.31 SCREENING NEGATIVE Type 2 lynda betes mellitus 57961669 E11.9 prior a1c is 6.6 !!!! she is due for repeat test now home glucose are excellents he is dong great and we will cont the current regimen Essential hypertension 35428740 I10 bp is stable Renewal of prescription 069849271 Z76.0 Allergic r eaction to bee sting 462614207 T63.444D [id number] Raheem Mccray [facility] [address] [facility],[place] [facility] [place] [address] 03/05/2024 13:45:36 03/05/2024 14:23:59 Adult health examination 431848255 Z00.00 denies any issues doing well a1c is 6,3 Screening for cardiovascular system disease 960205604 Z13.6 stable Screening for malignant neoplasm of colon 883553909 Z12.11 not interested Screening for osteoporosis 491197094 Z13.820 waiting Screening mammography 24 981750 Z12.31 set up in 2 weeks Type 2 lynda betes mellitus without complication 281709100 E11.9 a1c is 6.3 532109 Raheem Mccray [facility] [address] [facility],[place] [address] 06/06/2024 14:08:14 06/06/2024 14:47:06 Essential hypertension 19315051 I10 bp is stable Type 2 lynda betes mellitus 97455902 E11.9 prior a1c is 6.6 !!!! she is due for repeat test now home glucose are excellents he is dong great and we will cont the current regimen Health Concerns Section Related Observation LastModified by Organization Detjake ls LastModified Time None Recorded Concern Status LastModified by Organization Details LastModified Time None Recorded Advance Directives Directive None Recorded Payers Encounter Date Sequence Insurance Name Policy Number Policy Chau Covered Member ID Chau Member ID Guarantor Name 01/31/2023 2 [employer] - [employer] - COMMONWEALTH INDEMNITY PLAN [place] (INDEMNITY) [id number] Everton Laird [id number] Zina Laird 01/31/2023 1 [place] Zina Laird [id number] Zina Laird 06/13/2023 2 [employer] - [employer] - COMMONWEALTH INDEMNITY PLAN [place] (INDEMNITY) [id number] Everton Laird [id number] Zina Laird 06/13/2023 1 [place] [employer] Zina Laird [id number] Zina Laird 11/07/2023 2 [employer] - [employer] - COMMONWEALTH INDEMNITY PLAN [place] (INDEMNITY) [id number] Everton Laird [id number] Zina Laird 11/07/2023 1 [place] [employer] Zina Laird [id number] Zina Laird 03/05/2024 2 [employer] - [employer] - COMMONWEALTH INDEMNITY PLAN [place] (INDEMNITY) [id number] Everton Laird [id number] Zina Liard 03/05/2024 1 [place] [place] Zina Laird [id number] Zina Laird 06/06/2024 2 [employer] - [employer] - COMMONWEALTH INDEMNITY PLAN [place] ([place]DEMNITY) [id number] Everton Jacinto Kenanantoniokimmy [id number] Zina Jacinto Marya 06/06/2024 1 MEDICARE B-ID: [facility] Zina Feldmankimmy [id number] 2 Zina Jacinto Marya Notes Date Note Type Note Provider Name and Address Organization Details Recorded Time 3 text/htm l here for rechk and we are discussing the use of ibandronate and whether she really needs to takealso she can stop her asa shes been on for years given the latest data re adverse effectswe sdiscuse how she is now on calciuma nd vit d3 and she is actually going to gym and lifting wgtskristyn is wondering if she can not take the ibandronate Raheem Mccray DO [address] [place] [address], [address], [facility] Internal Medicine 01/31/2023 12:45:19 4 text/htm l Care Management - DiabetesReported bypatient.Self Care:seeing eye doctor yearly for dilated eye exam; checking feet regularly; normal range of home blood sugars (in the low 100s); no side effects from medications Associated Symptoms:symptoms are usually well controlled; no fatigue; no dizziness; no excessive sweating; no headaches; no confusion; no increased thirst; no increased appetite; no increased urination; no blurred vision; no numbness of feet; no calluses on feetCare Management - HypertensionReported bypatient.Self Care:not under emotional stress Severity:symptoms are improving; does not interfere with daily activities Associated Symptoms:no dizziness; no lightheadedness; no chest pain; no shortness of breath; no palpitations; no edema; no calf muscle cramps; no blurred vision; no confusion; no headaches; no fatigue patient is evaluated via tele/video assessment per patient consentduring current pandemic feeling good overalldiscussed results of her no cp nos sobsleeping okappetite good but is better by going to the gymbowels okbladder ok Raheem Mccray DO [address] [place] [address], [id number], [facility] Internal Medicine 06/13/2023 14:14:41 4 text/htm l here for rechk and is doing okrelates that the insur david d the bone [id number] is ok Raheem Mccray, DO [address] [facility], [place], [address], [facility] Internal Medicine 11/07/2023 15:26:30 4 text/htm l Medicare Annual Wellness VisitReported bypatient.Diet and Nutrition:healthy diet Fracture Risk:no history of fractures; no recent explained fracture; no sudden unexplained fractures; no previous musculoskeletal injuries Physical Activity:exercises on a regular basis; recent increase in physical activity; good physical condition Depression Risk:never feels sad, empty, or tearful; no loss of interest in activities; no significant changes in weight; no sleep disturbances or insomnia; no agitation; no loss of energy; no feelings of worthlessness or guilt; no thoughts of suicide; no history of depression; no history of mood disorders Orientation:no disorientation to time; no disorientation to date; no disorientation to place Concentration and Memory:no decreased concentrating ability; no memory lapses or loss; does not forget words Speech/Motor difficulties:no speech difficulties; no difficulty expressing formulated concepts; no difficulty with fine manipulative tasks; no difficulty writing/copying; no slowed reaction time; does not knock things over when trying to pick them up Hearing:no loss of hearing Vision:no vision problems Activities of Daily Living:able to bathe with limited or no assistance; able to contol urination and bowels; able to dress with limited or no assistance; able to feed self with limited or no assistance; able to get out of chair or bed with limited or no assistance; able to groom with limited or no assistance; able to toilet with limited or no assistance Instrumental Activities of Daily Living:able to do house work with limited or no assistance; able to grocery shop with limited or no assistance; able to manage medications with limited or no assistance; able to manage money with limited or no assistance; able to prepare meals with limited or no assistance; able to use the phone with limited or no assistance Falls Risk Assessment:no frequent falls while walking; no fall in the past year; no fall since last visit; no dizziness/vertigo Home Safety:no unsafe daniel hazzards; no unsafe stairs; no unsafe gas appliances; working smoke/CO detectors; wears protective head gear for biking/high velocity; use of seatbelts; practicing 'safer sex'; no vision or hearing loss while driving; no fire arms; has hand bars in the bathroom/shower; good lighting in the home here for rechk and is doing goodreviewed lab in detaildenies any issue no no sob Raheem Mccray DO [address] [place], [address], [facility] Internal Medicine 03/05/2024 14:15:46 5 text/htm l Care Management - DiabetesReported bypatient.Self Care:seeing eye doctor yearly for dilated eye exam; checking feet regularly; normal range of home blood sugars (in the low 100s); no side effects from medications Associated Symptoms:symptoms are usually well controlled; no fatigue; no dizziness; no excessive sweating; no headaches; no confusion; no increased thirst; no increased appetite; no increased urination; no blurred vision; no numbness of feet; no calluses on feetCare Management - HypertensionReported bypatient.Self Care:not under emotional stress Severity:symptoms are improving; does not interfere with daily activities Associated Symptoms:no dizziness; no lightheadedness; no chest pain; no shortness of breath; no palpitations; no edema; no calf muscle cramps; no blurred vision; no confusion; no headaches; no fatigue here for rechk and is doing ok except for the feeling of her uterus or bladder coming outotherwise is doing ok Raheem Mccray DO [address] [place], [address], [facility] Internal Medicine 06/06/2024 14:46:30 OBGyn Episode No OBEpisode recorded.
[2024-08-22 13:49] LABS: Basophils Percent Auto 0.6 % (0-2); Eosinophils Absolute Auto 0.1 X10*3/uL (0.0-0.4); Eosinophils Percent Auto 1.7 % (0-4); Hematocrit 38.8 % (37.0-47.0); Hemoglobin 12.8 g/dl (12.0-16.0); Imm Gran Abs Auto 0.02 X10*3/uL (0.00-0.03); Imm Gran Pct Auto 0.3 % (0.0-0.4); Lymphocytes Absolute Auto 2.8 X10*3/uL (1.2-4.9); Lymphocytes Percent Auto 44.2 % (20-40); Mean Corpuscular Hemoglobin 27.1 pg (27.0-33.0); Monocytes Absolute Auto 0.5 X10*3/uL (0.1-1.2); Monocytes Percent Auto 8.1 % (2-11); Neutrophils Absolute Auto 2.9 x10*3/uL (2.0-8.3); Neutrophils Percent Auto 45.1 % (45-73); Red Blood Count 4.73 X10*6/uL (4.20-5.50); Red Cell Distribution Width 13.7 % (11.0-16.0); White Blood Count 6.3 X10*3/uL (4.8-10.8)
[2024-08-22 13:52] LABS: Estimated Average Glucose 137 mg/dL; Hemoglobin A1C 154.0297 umol/L; Hemoglobin A1c % 6.4 % (<6.0); Total Hemoglobin (HGBA1C) 3355.1201 umol/L
[2024-08-22 14:14] LABS: Alanine Aminotransferase 12 U/L (0-31); Alkaline Phosphatase 49 U/L (39-117); Anion Gap 12 (12-20); Aspartate Amino Transferase 25 U/L (5-31); Bilirubin Total 0.6 mg/dL (0.0-1.0); Blood Urea Nitrogen 19 mg/dL (9-16); Calcium 9.5 mg/dL (8.4-10.2); Carbon Dioxide 28 mmol/L (22-29); Chloride 105 mmol/L (96-108); Cholesterol 166 mg/dL (<200); Estimated Glomerular Filt Rate > 60; Glucose Random 116 mg/dL (60-115); HDL Cholesterol 73 mg/dL (>40); LDL Cholesterol Calculated 74 mg/dL (<100); Potassium 4.2 mmol/L (3.3-5.1); Sodium 141 mmol/L (135-145); Total Protein 7.3 g/dL (6.5-8.0); Triglycerides 97 mg/dL (<150)
[2024-08-22 15:22] LABS: MANUAL DIFF FLAG SCAN; SLIDE REVIEW VERIFIED
== END 2024-08-22 07:34 | disposition home or self-care (01) ==
LOC: HO.MANLDS 07:33
PROVIDERS: Visit Provider Internal Medicine
DX: Z00.00 Encounter for general adult medical examination without abnormal findings (principal); Z13.6 Encounter for screening for cardiovascular disorders; E11.9 Type 2 diabetes mellitus without complications
CPT/HCPCS: 36415; 80053; 80061; 83036; 85025

== ENCOUNTER 2025-01-23 07:32 | Outpatient (REF) | payer MEDICARE, OTHER, SELFPAY ==
--- OUTSIDE RECORDS SUMMARY | 2025-01-23 07:35 | XMS_ITS | Encounter Summary ---
Author Organization [facility] Address [address] [facility] [address] [place] [address] Phone Care Team Providers Care Assisted Living Executive Director Name Role Phone Luciisabel Raheem Espinoza DO Primary Care Provider [phone] Encounter Details Date Type Department Care Team (Late Contact Info) Description 03/16/2022 Transcribe Orders Virtual Department [address] [place] [address] Raheem Rodríguez DO [address] [facility] [place] [address] [place] [address] [email or web address] Osteopenia, unspecified location Social History Tobacco Use Types Packs/Day Years Used Date Smoking Tobacco: Never Smokeless Tobacco: Never Alcohol Use Standard Drinks/Week Comments Yes 1 (1 standard drink = 0.6 oz pur e alcohol) Comments No Sex and Gender Information Value Date Recorded Sex Assigned at Not on file Legal Sex Female 9:56 PM EDT Gender Identity Not on file Sexual Orientation Not on file documented as of this encounter Plan of Treatment Upcoming Encounters Date Type Department Care Team (Late Contact Info) Description 12/27/2024 Procedure Pass [address] [address] 05/02/2025 Procedure Pass [facility] Admitting Dept Virtual Department [address] [place] [address] 05/02/2025 10:00 AM [email or web address] Hospital Encounter [facility] Admitting [facility] Virtual Department [address] [place] [address] Jaime Lazo MD [address] [place] [address] [email or web address] 05/02/2025 10:00 AM EST - 05/02/2025 10:30 AM EST Surgery [facility] Admitting Dept Virtual Department [address] [place] [address] Jaime Lazo MD [address] [place] [address] COLONOSCOPY 07/29/2025 4:00 PM EDT Appointment [facility] [address] [place] [address] Raheem Rodríguez DO [address] [facility] [place] [address] [email or web address] Scheduled Procedures Name Priority Associated Diagnoses Date/Ti me COLONOSCOPY Hx of colonic polyps 05/02/2025 10:00 AM EST documented as of this encounter Visit Diagnoses Diagnosis Osteopenia, unspecified location Hx of colonic polyps Personal history of colonic polyps documented in this encounter Care Teams Assisted Living Executive Director Relationship Specialty Start Date End Date Raheem Rodríguez DO [email or web address] PCP - General Internal Medicine 10/25/17 documented as of this encounter Additional Source Comments The information contained in this document represents components of the legal health record. It is not the complete legal health record.[facility]
--- OUTSIDE RECORDS SUMMARY | 2025-01-23 07:35 | XMS_ITS | Encounter Summary ---
Author Organization [facility] Address [address] [facility] [address] [place] [address] Phone Care Team Providers Care Profiling Machine Set Up Operator Tool Name Role Phone Raheem Rodríguez Olga SAMUELS Primary Care Provider [phone] Encounter Details Date Type Department Care Team (Late Contact Info) Description 12/26/2020 Ancillary Orders Virtual Department [address] [place] [address] Raheem Rodríguez DO [address] [facility] [place] [address] [place] [address] [email or web address] Breast screening Social History Tobacco Use Types Packs/Day Years [...] (Late Contact Info) Description 12/27/2024 Procedure Pass [address] [address] 05/02/2025 Procedure Pass [facility] Admitting [facility] Virtual Department [address] [place] [address] 05/02/2025 10:00 AM EST Hospital Encounter [facility] Ad[facility] Virtual Department [address] [place] [address] Jaime Lazo MD [address] [place] [address] [email or web address] 05/02/2025 10:00 AM EST - 05/02/2025 10:30 AM EST Surgery [facility] Admitting Dept Virtual Department [address] [place] [address] Jaime Lazo MD [address] [place] [address] [email or web address] COLONOSCOPY 07/29/2025 4:00 PM EDT Appointment [facility] [address] [place] [address] Raheem Rodríguez DO [address] [facility] [place] [address] [email or web address] Scheduled Procedures Name Priority Associated Diagnoses Date/Ti me COLONOSCOPY Hx of colonic polyps 05/02/2025 10:00 AM EST documented as of this encounter Results * BI MAMMOGRAM SCREENING WITH TOMOSYNTHESIS WITH CAD (BILATERAL) (12/31/2020 3:23 PM EDT) Anatomical Region Laterality Modality Breast Left, Breast Right, Breast Bilateral Bila teral Mammography 12/31/2020 4:17 PM EDT Impressions 12/31/2020 4:20 PM EDT No findings suspicious for malignancy. In the absence of a worrisome palpable abnormality, annual screening mammography is recommended. BI-RADS CATEGORY: 2 - Benign finding. DENSITY: There are scattered fibroglandular densities. Narrative 12/31/2020 4:20 PM EDT COMPARISON: 11/09/2013 through 11/30/2018. Bilateral 3-D tomosynthesis with 2-D reconstructions in the CC and MLO projection. Computer-aided detection system also utilized. No new mass, asymmetry, architectural distortion or suspicious calcifications have become apparent on either side. Chronic extensive benign secretory calcifications unchanged Procedure Note Juan José Uriostegui MD - 12/31/2020 COMPARISON: 11/09/2013 through 11/30/2018. Bilateral 3-D tomosynthesis with 2-D reconstructions in the CC and MLOprojection. Computer-aided detection system also utilized. No new mass, asymmetry, architectural distortion or suspiciouscalcifications have become apparent on either side. Chronic extensive benign secretory calcifications unchanged IMPRESSION: No findings suspicious for malignancy. In the absence of a worrisomepalpable abnormality, annual screening mammography is recommended. BI-RADS CATEGORY: 2 - Benign finding. DENSITY: There are scattered fibroglandular densities. us Raheem Rodríguez DO IMG MG EXAMS Final Result documented in this encounter Visit Diagnoses Diagnosis Breast screening Breast screening, unspecified Breast screening Breast screening, unspecified Hx of colonic polyps Personal history of colonic polyps documented in this encounter Care Teams Profiling Machine Set Up Operator Tool Relationship Specialty Start Date End Date Rhaeem Rodríguez DO [email or web address] PCP - General Internal Medicine 10/25/17 documented as of this encounter Additional Source Comments The information contained in this document represents components of the legal health record. It is not the complete legal health record.[facility]
--- OUTSIDE RECORDS SUMMARY | 2025-01-23 07:35 | XMS_ITS | Encounter Summary ---
Author Organization [facility] Address [address] [facility] [address] [place] [address] Phone Care Team Providers Care Mill Washer Name Role Phone Raheem Rodríguez DO Primary Care Provider [phone] Encounter Details Date Type Department Care Team (Late st Contact Info) Description 01/17/2020 Transcribe Orders Virtual Department [address] [place] [address] Jaime Lazo MD [address] [place] [address] Social History Tobacco Use Types Packs/Day Years Used Date Smoking Tobacco: Never Assessed Comments No Sex and Gender Information Value Date Recorded Sex Assigned at Not on file Legal Sex Female 9:56 PM EDT Gender Identity Not on file Sexual Orientation Not on file documented as of this encounter Plan of Treatment Upcoming Encounters Date Type Department Care Team (Late st Contact Info) Description 12/27/2024 Procedure Pass [address] [address] 05/02/2025 Procedure Pass [facility] Ad[facility] Virtual Department [address] [place] [address] 05/02/2025 10:00 AM [facility] Hospital Encounter [facility] Admitting [facility] Virtual Department [address] [place] [address] Jaime Lazo MD [address] [place] [address] 05/02/2025 10:00 AM EST - 05/02/2025 10:30 AM EST Surgery [facility] Admitting [facility] Virtual Department [address] [place] [address] Jaime Lazo MD [address] [facility] 2 [place] [address] COLONOSCOPY 07/29/2025 4:00 PM EDT Appointment [facility] 30 [place] [address] Raheem Rodríguez DO [address] [facility] [place] [address] [place] [address] [email or web address] Scheduled Procedures Name Priority Associated Diagnoses Date/Ti me COLONOSCOPY Hx of colonic polyps 05/02/2025 10:00 AM EST documented as of this encounter Visit Diagnoses Not on filedocumented in this encounter Care Teams Mill Washer Relationship Specialty Start Date End Date Raheem Rodríguez DO PCP - General Internal Medicine 10/25/17 documented as of this encounter Additional Source Comments The information contained in this document represents components of the legal health record. It is not the complete legal health record.[facility]
--- OUTSIDE RECORDS SUMMARY | 2025-01-23 07:35 | XMS_ITS | Encounter Summary ---
Author Organization [facility] Address [address] [facility] [address] [place] [phone] Phone Care Team Providers Care Laborer [employer] Name Role Phone Luciisabel Raheem Espnioza DO Primary Care Provider [phone] Encounter Details Date Type Department Care Team (Late Contact Info) Description 10/15/2021 Transcribe Orders Virtual Department [address] [place] [phone] Raheem Rodríguez DO [address] [facility] [address] [place] [address] [email or web address] Breast screening (Primary Dx) Social History Tobacco Use Types Packs/Day Years [...] (Late Contact Info) Description 12/27/2024 Procedure Pass [facility] [address] [place] [address] 05/02/2025 Procedure Pass [facility] Admitting [facility] Virtual Department [address] [place] [phone] 05/02/2025 10:00 AM EST Hospital Encounter [facility] Virtual Department [address] [place] [phone] Jaime Lazo MD [address] [place] [phone] 05/02/2025 10:00 AM EST - 05/02/2025 10:30 AM EST Surgery [facility] Admitting [facility] Virtual Department [address] [place] [address] Jaime Lazo MD [address] [place] [phone] [email or web address] COLONOSCOPY 07/29/2025 4:00 PM EDT Appointment [facility], [facility] [address] [place] [address] Raheem Rodríguez DO [address] [facility] [address] [place] [address] [email or web address] Scheduled Procedures Name Priority Associated Diagnoses Date/Ti me COLONOSCOPY Hx of colonic polyps 05/02/2025 10:00 AM EST documented as of this encounter Results * BI MAMMOGRAM SCREENING WITH TOMOSYNTHESIS WITH CAD (BILATERAL) (01/07/2022 1:30 PM EDT) Anatomical Region Laterality Modality Breast Left, Breast Right, Breast Bilateral Bila teral Mammography 01/08/2022 12:5 7 PM EDT Impressions 01/08/2022 1:05 PM EDT BILATERAL BREASTS: Negative, no specific mammographic evidence of malignancy. Normal interval follow-up is recommended in 12 months. BI-RADS: BI-RADS CATEGORY: 1 - Negative. DENSITY: There are scattered fibroglandular densities. Narrative 01/08/2022 1:05 PM EDT STUDY: Bilateral screening mammography with tomosynthesis and CAD TECHNIQUE: Bilateral full-field digital screening mammography is obtained and read in conjunction with computer-aided detection. Tomosynthesis as well as 2-D C view imaging were obtained. COMPARISON: Comparison made to multiple prior, most recent December 31, 2020, and most remote November 09, 2013. BREAST COMPOSITION: There are scattered areas of fibroglandular density BILATERAL BREASTS: No significant masses, suspicious calcifications or other abnormalities are seen in either breast. Procedure Note Sanju Merrill MD - 01/08/2022 STUDY: Bilateral screening mammography with tomosynthesis and CAD TECHNIQUE: Bilateral full-field digital screening mammography is obtainedand read in conjunction with computer-aided detection. Tomosynthesis aswell as 2-D C view imaging were obtained. COMPARISON: Comparison made to multiple prior, most recent December, and most remote November 09, 2013. BREAST COMPOSITION: There are scattered areas of fibroglandulardensity BILATERAL BREASTS: No significant masses, suspicious calcifications orother abnormalities are seen in either breast. IMPRESSION: BILATERAL BREASTS: Negative, no specific mammographic evidence ofmalignancy. Normal interval follow-up is recommended in 12 months. BI-RADS: BI-RADS CATEGORY: 1 - Negative. DENSITY: There are scattered fibroglandular densities. Raheem Rodríguez DO IMG MG EXAMS Final Result documented in this encounter Visit Diagnoses Diagnosis Breast screening- Primary Breast screening, unspecified Breast screening Breast screening, unspecified Hx of colonic polyps Personal history of colonic polyps documented in this encounter Care Teams Laborer [employer] Relationship Specialty Start Date End Date Raheem Rodríguez DO [email or web address] PCP - General Internal Medicine 10/25/17 documented as of this encounter Additional Source Comments The information contained in this document represents components of the legal health record. It is not the complete legal health record.[facility]
--- OUTSIDE RECORDS SUMMARY | 2025-01-23 07:35 | XMS_ITS | Encounter Summary ---
Author Organization [facility] Address [address] [place] [address] [place] [phone] Phone Care Team Providers Care Applications Support Engineer Name Role Phone Raheem Rodríguez Primary Care Provider [phone] Encounter Details Date Type Department Care Team (Late st Contact Info) Description 03/27/2020 Procedure Pass [facility] Admitting [facility] Virtual Department [address] [place] [phone] Social History Tobacco Use Types Packs/Day Years [...] st Contact Info) Description 12/27/2024 Procedure Pass [address] [address] 05/02/2025 Procedure Pass [facility] Admitting [facility] Virtual Department [address] [place] [phone] 05/02/2025 10:00 AM [facility] Hospital Encounter [facility] Admitting [facility] Virtual Department [address] [place] [phone] Jaime Lazo MD [address] [place] [phone] 05/02/2025 10:00 AM EST - 05/02/2025 10:30 AM EST Surgery [facility] Admitting Dept Virtual Department [address] [place] [address] Jaime Lazo MD [address] [address] [email or web address] 07/29/2025 4:00 PM EDT Appointment [facility], [facility] [address] [place] [address] Raheem Rodríguez DO [address] [facility] [address] [email or web address] [email or web address] Procedures Name Priority Associated Diagnoses Date/Ti me COLONOSCOPY Hx of colonic polyps 05/02/2025 10:00 AM EST documented as of this encounter Visit Diagnoses Not on filedocumented in this encounter Care Teams Applications Support Engineer Relationship Specialty Start Date End Date Raheem Rodríguez DO [email or web address] PCP - General Internal Medicine 10/25/17 documented as of this encounter Additional Source Comments The information contained in this document represents components of the legal health record. It is not the complete legal health record.[facility]
--- OUTSIDE RECORDS SUMMARY | 2025-01-23 07:35 | XMS_ITS | Clinical Summary ---
Author Organization [facility] Address [address] [place], [place] [id number] Phone Care Team Providers Care Polls Or Surveys Interviewer Name Role Phone Abigail Mccray DO Primary Care Provider [phone] Allergies Active Allergy Reactions Criticality Noted Date Comments Bee Pollen 03/26/2020 Medications metFORMIN (GLUCOPHAGE) 500 MG tablet Take 500 mg by mouth 2 (two) times a day with meals. Active lisinopril (PRINIVIL,ZESTR IL) 10 MG tablet Take 10 mg by mouth daily. Active lovastatin (MEVACOR) 20 MG tablet Take 20 mg by mouth nightly at bedtime. Active aspirin 81 MG EC tablet Take 81 mg by mouth daily. Active glucosamine 500 mg Cap Take 1,000 mg by mouth 2 (two) times a day. Active Ca cit-D3-mag#11-z xgt-pcio-ljw-aguilar r (CALTRATE 600+D) 600 mg calcium- 800 unit-50 mg Tab Take 1 tablet by mouth daily. Active folic acid (FOLVITE) 400 MCG tablet Take 400 mcg by mouth daily. Active EPINEPHrine 0.3 mg/0.3 mL auto-injector 0.3 mg SC/IM x1; Info: may repeat dose x1 after 5-15min if needed, then call 911 Active cyclobenzaprine (FLEXERIL) 10 MG tablet Take 1 tablet (10 mg total) by mouth 2 (two) times a day as needed. 20 tablet 3 Active Additional Information Patient not taking.Reported on 05/06/2024 cephalexin 500 mg tablet 4 Active ibandronate (BONIVA) 150 mg tablet Take 1 tablet every month by oral route for 90 days. Active Active Problems Problem Noted Date Diagnosed Date Cystocele with rectocele 2024 Overview (2024): Cystocele to +2, rectocele to 0. Patient relatively asymptomatic so will defer any intervention at this time (06/2024) Allergic reaction to bee sting 11/07/2023 Recurrent urinary tract infection 03/15/2022 Osteopenia 03/15/2022 Allergic to bees 11/02/2017 Arthritis 11/02/2017 Blood in urine 11/02/2017 Essential hypertension 11/02/2017 Fracture of ankle 11/02/2017 Hyperlipidemia 11/02/2017 Type 2 diabetes mellitus 11/02/2017 Obesity 11/02/2017 Allergy to honey bee venom 11/02/2017 Overview (05/06/2024): dyspnea Encounters Date Type Department Care Team Description 12/27/2024 Transcribe Orders Virtual Department [address] [place] [address] Abigail Mccray DO Breast screening (Primary Dx) 12/17/2024 1:47 PM EDT - 12/17/2024 11:59 PM EDT Hospital Encounter [facility] [address] [place] [address] Abigail Mccray DO Discharge Disposition: Home or Self Care from Last 3 Months Immunizations Immunization Administration Dates Next Due COVID-19 (Pre-03/07) Pfizer Vaccine, mRNA, PF 07/09/2020,06/18/2020 Influenza Quadrivalent w/ Preservative IM 2021,02/13/2019,01/30/2018 Pneumococcal conjugate PCV13 07/03/2015 Pneumococcal polysaccharide PPSV23 10/02/2021 Td (adult), not adsorbed 03/06/2002 Tdap 05/11/2011 Zoster recombinant 03/05/2015 Family History Medical History Relation Comments Ovarian cancer Maternal Grandmother Breast cancer Neg Hx Relation Status Comments Maternal Grandmother Social History Tobacco Use Types Packs/Day Years Used Date Smoking Tobacco: Never Smokeless Tobacco: Never Tobacco Cessation:Counseling Given: Not Answered Alcohol Use Standard Drinks/Week Comments Yes 1 (1 standard drink = 0.6 oz pur e alcohol) once in a while Education Answer Date Recorded Are you interested in more education? Not on gideon e 09/10/2022 Are you concerned about learning? Not on file 09/10/2022 No 09/10/2022 No 09/10/2022 Digital Access Answer Date Recorded No 10/09/2022 No 10/09/2022 Reliable internet access at home? Not on file 10/09/2022 Device with a working camera? Not on file Comments No Sex and Gender Information Value Date Recorded Sex Assigned at Not on file Legal Sex Female 9:56 PM EDT Gender Identity Not on file Sexual Orientation Not on file Last Filed Vital Signs Vital Sign Reading Time Taken Comments Blood Pressure 136/72 2024 2:28 PM EST Pulse 89 05/06/2024 3:45 PM EST Temperature 36.7 C (98 F) 05/06/2024 3:45 PM EST Respiratory Rate 16 05/06/2024 3:45 PM EST Oxygen Saturation 96% 05/06/2024 3:45 PM EST Inhaled Oxygen Concentration - - Weight 90.7 kg (200 lb) 2024 2:28 PM EST Height 157.5 cm (5' 2 ) 09/04/2022 11:21 AM EDT Body Mass Index 36.58 09/04/2022 11:21 AM EDT Plan of Treatment Upcoming Encounters Date Type Department Care Team (Late st Contact Info) Description 12/27/2024 Procedure Pass [address] [address] 05/02/2025 Procedure Pass [facility] Endoscopy Admitting Dept Virtual Department [address] [place] [address] 05/02/2025 10:00 AM EST Hospital Encounter [facility] Ad[facility] Virtual Department [address] [place] [address] Isidro Salgado MD [address] [place] [address] 05/02/2025 10:00 AM EST - 05/02/2025 10:30 AM EST Surgery [facility] Endoscopy Admitting Dept Virtual Department [address] [place] [address] Isidro Salgado MD [address] [facility] [address] [place] [address] COLONOSCOPY 07/29/2025 4:00 PM EDT Appointment [facility] [address] [place] [address] Abigail Mccray, [address] [place] [address] [email or web address] Scheduled Procedures Name Priority Associated Diagnoses Date/Ti me COLONOSCOPY Hx of colonic polyps 05/02/2025 10:00 AM EST Health Maintenance Due Date Last Done Comments DEPRESSION SCREENING 1966 HEPATITIS C SCREENING 1972 COLOGUARD 1999 FIT TEST 1999 FOBT 1999 SIGMOIDOSCOPY 1999 VIRTUAL COLONOSCOPY 1999 ZOSTER VACCINES (2 of 2) 04/30/2015 03/05/2015 Adult Td,Tdap Booster 05/11/2021 05/11/2011, 002 DIABETIC EYE EXAM 09/04/2022 HEMOGLOBIN A1C 12/03/2024 06/05/2024, 09/26/2019 INFLUENZA VACCINE (#1) 2024 , 02/13/2019, 01/30/2018 BLOOD PRESSURE 12/26/2024 2024 COVID-19 VACCINE ( season) 2025 07/09/2020, 06/18/2020 CREATININE LEVEL 06/05/2025 06/05/2024 LIPID PANEL 06/05/2025 06/05/2024 POTASSIUM LEVEL 06/05/2025 06/05/2024 MAMMOGRAM 03/22/2026 03/22/2024, 02/14, 01/07/2022, Additional history exists RSV VACCINE (1 - 1-dose 75+ series) 2029 COLONOSCOPY 03/27/2030 03/27/2020 COLORECTAL CANCER SCREENING 03/27/2030 PNEUMOCOCCAL VACCINES (50+ years) Completed 10/02/2021, 07/03/2015 SMOKING STATUS SCREENING (Once After 26 Yrs) Completed 2024 OSTEOPOROSIS SCREENING INITIAL (ONE-TIME) Completed 12/17/2024, 12/03/2022 HEPATITIS A VACCINES Aged Out No long er eligible based on patient's age to complete this topic HIB VACCINES Aged Out No longer eligi ble based on patient's age to complete this topic MENINGOCOCCAL VACCINES (ACWY) Aged Out No longer eligible based on patient's age to complete this topic MENINGOCOCCAL VACCINES (B) Aged Out N o longer eligible based on patient's age to complete this topic Medical Devices Implanted Type [employer] Device Identifier Shelf Expiration Date Model / Serial / Lot Pin Right: Foot Procedures Procedure Name Priority Date/Time Associated Diagnosis Comments BD DXA AXIAL (SPINE) WITH HIP Routine 12/17/2024 2:01 PM EDT Encounter for screening for osteoporosis HEMOGLOBIN A1C Routine 06/05/2024 7:37 AM EST Pure hypercholesterolemia Diabetes mellitus of other type without complication, unspecified 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 LIPID PANEL Routine 06/05/2024 7:37 AM EST Pure hypercholesterolemia COMPREHENSIVE METABOLIC PANEL Routine 06/05/2024 7:37 AM EST Pure hypercholesterolemia Diabetes mellitus of other type without complication, unspecified 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 BI MAMMOGRAM SCREENING WITH TOMOSYNTHESIS WITH CAD (BILATERAL) Routine 03/22/2024 3:44 PM EST Breast screening ENDOSCOPY, COLON 03/27/2020 10:44 AM EST from Last 3 Months or Most Recently Relevant to Health Maintenance Results * BD DXA AXIAL (SPINE) WITH HIP (12/17/2024 2:01 PM EDT) Anatomical Region Laterality Modality Bone Density Bone Density 12/17/2024 2:00 PM EDT Impressions 12/17/2024 8:33 PM EDT Interpretation: Osteopenia. Narrative 12/17/2024 8:33 PM EDT Referred By: ABIGAIL MCCRAY Scanner: [employer] with serial# of [id number] located at [facility] Bone Density Scan (DXA) 12/17/24 Details of prior DXA scans are available by clicking View Full Report BMD T- Z- Skeletal Site gm/cm2 score score BMD Change Since Prior Scan ------ ----- ----- PA Spine (L1-L4) 1.247 1.80 4.00 0.054 (4.5%)* since 12/03/2022 Total Hip (Right) 0.875 -0.50 1.00 0.015 (stable) since 12/03/2022 Femoral Neck (Right) 0.671 -1.60 0.20 -0.041 (-5.8%)* since 12/03/2022 ------ ----- ----- * Denotes significant change when >= 0.022 g/cm2 for the spine, 0.027 g/cm2 for the total hip, 0.029 g/cm2 for the femoral neck. Interpretation: Osteopenia. Technical Quality: Imaging of all sites was of adequate quality. FRAX: Based on FRAX(r) 3.6 ([place] White female), this patient's likelihood of hip fracture is 1.3% and major osteoporotic fracture is 9.1% over the next 10 years. The patient reported no risks of fracture. Reviewed By: Jon Zaragoza on 12/17/2024 20:33:54 Additional Information: -World Health Organization criteria classify adults based on lowest T-score at PA spine, hip or forearm: Normal (T-score >= -1.0), Osteopenia (T-score between -1 and -2.5), or Osteoporosis (T-score <= -2.5). At [facility], T-scores are compared to peak bone density of a young white gender matched reference population. - For premenopausal women and men under the age of 50, Z-scores (comparison to age, gender, and ethnicity matched reference population) are used: Above expected range for age (Z-score >= 2.0), Within expected range of age (Z-score 1.9 to -1.9), or Below expected range for age (Z-score <= -2.0). - The Bone Health and Osteoporosis Foundation recommends that treatment be considered in men aged more than 50 years and in postmenopausal women with ANY of the following: Prior hip or vertebral fractures; T-score of <= -2.5 at the PA spine or hip; or 10 year fracture probability by FRAX of >= 3% for the hip or >= 20% for major osteoporotic fracture. - The FRAX algorithm (https://www.mihcelle.ac.uk/FRAX/tool.aspx) is designed to predict 10-year fracture risk in treatment-naive adults between the ages of 40 and 90. It is not intended to be used in those receiving pharmacologic osteoporosis treatment. - The TBS is derived from the texture of the DXA spine image and has been shown to be related to bone microarchitecture and fracture risk. This data provides information independent of BMD value. It adds to fracture risk assessment with a FRAX adjusted for TBS score. If your patient had a TBS and qualified for a FRAX score, the reported FRAX score has been adjusted for TBS. TBS Score Interpretation 1.350 and greater Normal bone microarchitecture 1.200 to 1.350 Partially degraded bone microarchitecture 1.200 and less Degraded bone microarchitecture - Including race/ethnicity in the generation of T- or Z-scores or in the FRAX calculation is complicated, and currently undergoing active review to ensure that we can give patients the best information on their risk of fracture. - Some prior studies may not be compatible with our comparison software. - Click on View Full Report to see subsequent pages with images and prior bone density results. Procedure Note Jon Zaragoza MD - 12/17/2024 Referred By: ABIGAIL MCCRAY Scanner: [employer] with serial# of [id number] located at [facility] Bone Density Scan (DXA) 12/17/24 Details of prior DXA scans are available by clicking View Full Report BMD T- Z- Skeletal Site gm/cm2 score score BMD Change Since Prior Scan ------ ----- PA Spine (L1-L4) 1.247 1.80 4.00 0.054 (4.5%)* since12/03/2022 Total Hip (Right) 0.875 -0.50 1.00 0.015 (stable) since12/03/2022 Femoral Neck (Right) 0.671 -1.60 0.20 -0.041 (-5.8%)* since12/03/2022 ------ ----- * Denotes significant change when >= 0.022 g/cm2 for the spine, 0.027g/cm2 for the total hip, 0.029 g/cm2 for the femoral neck. Interpretation: Osteopenia. Technical Quality: Imaging of all sites was of adequate quality. FRAX: Based on FRAX(r) 3.6 ([place] White female), this patient's likelihoodof hip fracture is 1.3% and major osteoporotic fracture is 9.1% over the next 10 years. The patient reported no risks of fracture. Reviewed By: Jon Zaragoza on 12/17/2024 20:33:54 Additional Information: -World Health Organization criteria classify adults based on lowestT-score at PA spine, hip or forearm: Normal (T-score >= -1.0), Osteopenia (T-score between -1 and -2.5), or Osteoporosis (T-score <= -2.5). At [facility], T-scores are compared to peak bone density of a young white gender matched reference population. - For premenopausal women and men under the age of 50, Z-scores(comparison to age, gender, and ethnicity matched reference population) are used:Above expected range for age (Z-score >= 2.0), Within expected range of age (Z-score 1.9 to -1.9), or Below expected range for age (Z-score <= -2.0). - The Bone Health and Osteoporosis Foundation recommends that treatment be considered in men aged more than 50 years and in postmenopausal women with ANY of the following: Prior hip or vertebral fractures; T-score of <= -2.5 at the PA spine or hip; or 10 year fracture probability by FRAX of >= 3%for the hip or >= 20% for major osteoporotic fracture. - The FRAX algorithm (https://www.michelle.ac.uk/FRAX/tool.aspx) is designed to predict 10-year fracture risk in treatment-naive adultsbetween the ages of 40 and 90. It is not intended to be used in those receiving pharmacologic osteoporosis treatment. - The TBS is derived from the texture of the DXA spine image and has been shown to be related to bone microarchitecture and fracture risk. This data provides information independent of BMD value. It adds to fracture risk assessment with a FRAX adjusted for TBS score. If your patient had a TBSand qualified for a FRAX score, the reported FRAX score has been adjusted for TBS. TBS Score Interpretation 1.350 and greater Normal bone microarchitecture 1.200 to 1.350 Partially degraded bone microarchitecture 1.200 and less Degraded bone microarchitecture - Including race/ethnicity in the generation of T- or Z-scores or in the FRAX calculation is complicated, and currently undergoing active review to ensure that we can give patients the best information on their risk of fracture. - Some prior studies may not be compatible with our comparison software. - Click on View Full Report to see subsequent pages with images andprior bone density results. IMPRESSION: Interpretation: Osteopenia. us Abigail A Bigda DO IMG BD BONE DENSITY DEXA Final R esult * (ABNORMAL) Comprehensive metabolic panel (06/05/2024 7:37 AM EST) SODIUM 141 133 - 146 mmol/L [facility] POTASSIUM 3.9 3.3 - 5.1 mmol/L [facility] CHLORIDE 104 96 - 108 mmol/L [facility] CO2 26 21 - 35 mmol/L [facility] BUN 17 6 - 19 mg/dL [facility] CREATININE 0.70 0.5 - 1.5 mg/dL [facility] GLUCOSE 132(H) 70 - 99 mg/dL [facility] ALBUMIN 4.3 3.9 - 4.8 g/dL [facility] TOTAL PROTEIN 7.5 6.5 - 8.0 g/dL [facility] CALCIUM 9.4 8.4 - 10.3 mg/dL [facility] ALKALINE PHOSPHATASE 56 39 - 117 U/L [facility] TOTAL BILIRUBIN 0.5 0.0 - 1.2 mg/dL [facility] AST 19 0 - 37 U/L [facility] ALT 11 0 - 40 U/L [facility] GLOBULIN 3.2 1 - 4.8 g/dL [facility] EGFR 94 >59 mL/min/1.7 3m2 [facility] Comment:Estimated glomerular filtration rate calculated using the CKD-EPI refit equation. ANION GAP 15 10 - 20 mmol/L [facility] Blood 06/05/2024 7:37 AM EST 06/05/2024 7:44 AM EST us Abigail A Bigda DO LAB BLOOD ORDERABLES Final Resul t [address] [address] * (ABNORMAL) Hemoglobin A1c (06/05/2024 7:37 AM EST) HEMOGLOBIN A1C 6.6(H) 4.3 - 5.8 % [facility] Blood 06/05/2024 7:37 AM EST 06/05/2024 7:44 AM EST us Abigail A Lucida DO LAB BLOOD ORDERABLES Final Resul t Performing Organization Address [facility] Co de Phone Number [address] [address] * (ABNORMAL) Lipid panel (06/05/2024 7:37 AM EST) HDL 82 mg/dL [facility] Comment: Interpretation <40 mg/dL: Low HDL cholesterol (major risk factor for CHD) Greater than or equal to 60 mg/dL: High HDL cholesterol ( negative risk factor for CHD) HDL - cholesterol is affected by a number of factors, e.g. smoking, excerise, hormones, sex and age. CHOLESTEROL 179 0 - 240 mg/dL [facility] TRIGLYCERIDES 102 30 - 160 mg/dL [facility] LDL 77 50 - 129 mg/dL [facility] Comment: LDL levels in terms of risk for coronary heart disease: <100 mg/dL: Optimal 100-129 mg/dL: Near or above optimal 130-159 mg/dL: Borderline high 160-189 mg/dL: High >190 mg/dL: Very High CARDIAC RISK RATIO 2.2(L) 3.3 - 4.4 C [facility] Blood 06/05/2024 7:37 AM EST 06/05/2024 7:43 AM EST us Abigail A Bigda DO LAB BLOOD ORDERABLES Final Resul t Performing Organization Address [facility]/ZIP Co de Phone Number [address] [address] * BI MAMMOGRAM SCREENING WITH TOMOSYNTHESIS WITH CAD (BILATERAL) (03/22/2024 3:44 PM EST) Anatomical Region Laterality Modality Breast Left, Breast Right, Breast Bilateral Bila teral Mammography 03/23/2024 8:44 AM EST Impressions 03/23/2024 8:46 AM EST No mammographic evidence of malignancy in either breast. Annual screening mammography is recommended. BI-RADS 2 BENIGN The patient will be notified of the results and recommendations. Narrative 03/23/2024 8:46 AM EST BI MAMMOGRAM SCREENING WITH TOMOSYNTHESIS WITH CAD (BILATERAL) Additional patient information: Screening. COMPARISON: Comparison is made with relevant prior imaging. Breast composition: There are scattered areas of fibroglandular density. FINDINGS: Benign-appearing, scattered calcifications in both breasts are stable. No abnormal masses, suspicious calcifications, or other significant findings are identified mammographically in either breast. There has been no significant interval change. Procedure Note Anayeli Hernandez MD - 03/23/2024 BI MAMMOGRAM SCREENING WITH TOMOSYNTHESIS WITH CAD (BILATERAL) Additional patient information: Screening. COMPARISON: Comparison is made with relevant prior imaging. Breast composition: There are scattered areas of fibroglandular density. FINDINGS: Benign-appearing, scattered calcifications in both breasts are stable. No abnormal masses, suspicious calcifications, or other significantfindings are identified mammographically in either breast. There has been no significant interval change. IMPRESSION: No mammographic evidence of malignancy in either breast. Annual screening mammography is recommended. BI-RADS 2 BENIGN The patient will be notified of the results and recommendations. us Abigail A Bigda DO IMG MG EXAMS Final Result * ENDOSCOPY, COLON (03/27/2020 10:44 AM EST) Narrative Transcriptions Isidro Salgado MD - 03/27/2020 10:44 AM EST Patient Name: Zina Ledesam Attending MD:: ISIDRO SALGADO MD Procedure Date: 03/27/2020 10:44AM Date of : 1955 Age: 64 Admit Type: Outpatient Gender: Female Room: [place] [address] Referring MD: ABIGAIL MCCRAY DO Exam Type: Colonoscopy Indications: Surveillance: Personal history of adenomatous polypson last colonoscopy > 5 years ago, Last colonoscopy:October 2014 Medications: Monitored Anesthesia Care Procedure: Informed consent was obtained from the patient after discussion of the indications, limitations, alternatives, benefits, and risks of the procedure. Risks specifically discussed include but are not limited to medication reactions, missed lesions, bleeding, perforation, or the need for emergentsurgery. Throughout the procedure, the patient's bloodpressure, pulse, end-tidal CO2, and oxygen saturations were monitored continuously. The Olympus adult colonoscope CFQ 180AL #5 was introduced through the anus and advanced to thececum, identified by the appendiceal orifice, ileocecalvalve and palpation. The colonoscopy was performed without difficulty. The patient tolerated the procedure. The quality of the bowel preparation was good. Complications: Laryngospasm that responded to jaw manuever andbagged ventilation rapidly Findings: The perianal and digital rectal examinations were normal. Pertinent negatives include normal sphincter tone. Many small-mouthed diverticula were found in the sigmoid colon. Retroflexion in the right colon was performed. The exam was otherwise without abnormality on direct and retroflexion views. Impression: - Diverticulosis in the sigmoid colon. - The examination was otherwise normal on direct and retroflexion views. - No specimens collected. Recommendation: - Repeat colonoscopy in 5 years for surveillance at hospital due to BMI. - High fiber diet. ISIDRO SALGADO MD 03/27/2020 11:09:04 AM This report has been signed electronically. Number of Addenda: 0 Note Initiated On: 03/27/2020 10:44 AM Procedure Code(s): --- Professional --- 19613, Colonoscopy, flexible; diagnostic, including collection of specimen(s) by brushing or washing, when performed (separateprocedure) --- Technical --- 07824, Colonoscopy, flexible; diagnostic, including collection of specimen(s) by brushing or washing, when performed (separateprocedure) Diagnosis Code(s): --- Professional --- Z86.010, Personal history of colonic polyps K57.30, Diverticulosis of large intestine without perforation or abscess without bleeding --- Technical --- Z86.010, Personal history of colonic polyps K57.30, Diverticulosis of large intestine without perforation or abscess without bleeding CPT copyright 2018 [employer]. All rights reserved. The codes documented in this report are preliminary and upon ekg technician reviewmay be revised to meet current compliance requirements. Procedure Date: 03/27/2020 10:44:24 AM [address] [place] [address] us Abigail Mccray DO GI PROCEDURE ORDERABLES Final Re sult from Last 3 Months or Most Recently Relevant to Health Maintenance [place] [employer] SUPPLEMENT MEDICARE PART A & B Member Subscriber Plan / Payer (Ef fective 2019-Present) Name:Zina Ledesma Member ID:[id number] Relation to Subscriber:Self Name:Zina Ledesma Subscriber ID:[id number] Payer ID:[id number] Group ID:Not on file Type:Medicare Address: [employer] [address] [employer] MEDICARE SUPPLEMENT MEDICARE PART A & B [employer] [facility] MEDICARE SUPPLEMENT MEDICARE PART A & B [facility] MEDICARE SUPPLEMENT MEDICARE PART A & B MEDICARE SUPPLEMENT MEDICARE PART A & B [facility] MEDICARE SUPPLEMENT MEDICARE PART A & B [facility] MEDICARE SUPPLEMENT MEDICARE PART A & B [facility] [employer] MEDICARE SUPPLEMENT MEDICARE PART A & B [facility] MEDICARE SUPPLEMENT MEDICARE PART A & B Care Teams Polls Or Surveys Interviewer Relationship Specialty Start Date End Date Abigail Mccray DO [email or web address] PCP - General Internal Medicine 10/25/17 Additional Source Comments The information contained in this document represents components of the legal health record. It is not the complete legal health record.[facility]
--- OUTSIDE RECORDS SUMMARY | 2025-01-23 07:35 | XMS_ITS | Encounter Summary ---
Author Organization [facility] Address [address] [facility] [address] [place] [address] Phone Care Team Providers Care Iuss Acoustic Analyst Name Role Phone Raheem Rodríguez Primary Care Provider [phone] Encounter Details Date Type Department Care Team (Late Contact Info) Description 03/16/2022 Ancillary Orders Virtual Department [address] [place] [address] Raheem Rodríguez DO 179 [facility] [address] [place] [address] [email or web address] Osteopenia, unspecified location; Other specified disorders of bone density and structure, unspecified site Social History Tobacco Use Types Packs/Day Years [...] st Contact Info) Description 12/27/2024 Procedure Pass [address] [address] 05/02/2025 Procedure Pass [facility] End[facility] Admitting Dept Virtual Department [address] [place] [address] 05/02/2025 10:00 AM [facility] Hospital Encounter [facility] End[facility] Admitting Dept Virtual Department [address] [place] [address] Jaime Lazo MD [address] [place] [address] 05/02/2025 10:00 AM EST - 05/02/2025 10:30 AM EST Surgery [facility] Endoscopy Admitting Dept Virtual Department [address] [place] [address] Jaime Lazo MD [address] [place] [address] [email or web address] COLONOSCOPY 07/29/2025 4:00 PM EDT Appointment [address] [address] Raheem Rodríguez DO 179 [facility] [place] [address] [email or web address] Scheduled Procedures Name Priority Associated Diagnoses Date/Ti me COLONOSCOPY Hx of colonic polyps 05/02/2025 10:00 AM EST documented as of this encounter Results * BD DXA AXIAL (SPINE) WITH HIP (12/03/2022 2:51 PM EDT) Anatomical Region Laterality Modality Bone Density Bone Density 12/14/2022 8:40 AM EDT Impressions 12/14/2022 10:29 AM EDT Bone mineral density in the right femoral neck falls within the osteopenia range. Statistically significant bone mineral density loss in the right hip compared with 11/12/2008. Statistically significant bone mineral density increase in the lumbar spine compared with 11/12/2008. Narrative 12/14/2022 10:29 AM EDT This is a 67-year-old female presenting for screening exam. Compared with prior study 11/12/2008. Evaluation of the lumbar spine and right hip is obtained and appears technically adequate. The lumbar spine from L1 through L4 discloses a total bone mineral density of 1.193 g/cm2 with a T-score of 1.3. This is in the normal range. This is a statistically significant bone mineral density change of 4.4% compared with 11/12/2008. The right hip (total) has a total bone mineral density of 0.860 g/cm2 with a T-score of -0.7. This is in the normal range.This is a statistically significant bone mineral density change of -15.0% compared with 11/12/2008. The right hip (neck) has a total bone mineral density of 0.712 g/cm2 with a T- score of -1.2. Z score 0.5. Procedure Note Turner Hope MD - 12/14/2022 This is a 67-year-old female presenting for screening exam. Compared with prior study 11/12/2008. Evaluation of the lumbar spine and right hip is obtained and appearstechnically adequate. The lumbar spine from L1 through L4 discloses a total bone mineral densityof 1.193 g/cm2 with a T-score of 1.3. This is in the normal range. Thisis a statistically significant bone mineral density change of 4.4%compared with 11/12/2008. The right hip (total) has a total bone mineral density of 0.860 g/ou3vgtp a T- score of -0.7. This is in the normal range.This is astatistically significant bone mineral density change of -15.0% comparedwith 11/12/2008. The right hip (neck) has a total bone mineral density of 0.712 g/cm2 witha T- score of -1.2. Z score 0.5. IMPRESSION: Bone mineral density in the right femoral neck falls within the osteopeniarange. Statistically significant bone mineral density loss in the righthip compared with 11/12/2008. Statistically significant bone mineraldensity increase in the lumbar spine compared with 11/12/2008. us Raheem A Bigda DO IMG BD BONE DENSITY DEXA Final R esult documented in this encounter Visit Diagnoses Diagnosis Osteopenia, unspecified location Other specified disorders of bone density and structure, unspecified site Osteopenia, unspecified location Other specified disorders of bone density and structure, unspecified site Hx of colonic polyps Personal history of colonic polyps documented in this encounter Care Teams Iuss Acoustic Analyst Relationship Specialty Start Date End Date Raheem Rodríguez DO [email or web address] PCP - General Internal Medicine 10/25/17 documented as of this encounter Additional Source Comments The information contained in this document represents components of the legal health record. It is not the complete legal health record.[facility]
--- OUTSIDE RECORDS SUMMARY | 2025-01-23 07:35 | XMS_ITS | Encounter Summary ---
Author Organization [facility] Address [address] [facility] [address] [place] [address] Phone Care Team Providers Care Amusement Park Ride Mechanic Name Role Phone Raheem oRdríguez Primary Care Provider [phone] Encounter Details Date Type Department Care Team (Late st Contact Info) Description 10/13/2018 Ancillary Orders Virtual Department [address] [place] [address] Raheem Rodríguez DO 179 [facility] [place] [address] [place] [address] Breast screening Social History Tobacco Use Types [...] st Contact Info) Description 12/27/2024 Procedure Pass [address] [address] 05/02/2025 Procedure Pass [facility] Endoscopy Admitting Dept Virtual Department [address] [place] [address] 05/02/2025 10:00 AM [facility] Hospital Encounter [facility] Endoscopy Admitting Dept Virtual Department [address] [place] [address] Jaime Lazo MD [address] [place] [address] 05/02/2025 10:00 AM EST - 05/02/2025 10:30 AM EST Surgery [facility] Endoscopy Admitting Dept Virtual Department 30 [place] [address] Jaime Lazo MD 10 [facility] 2 [place] [address] [email or web address] COLONOSCOPY 07/29/2025 4:00 PM EDT Appointment [facility], [facility]- [facility] 30 [place] [address] Raheem Rodríguez, 179 [facility] [place] [address] [place] [address] [email or web address] Scheduled Procedures Name Priority Associated Diagnoses Date/Ti me COLONOSCOPY Hx of colonic polyps 05/02/2025 10:00 AM EST documented as of this encounter Results * BI MAMMOGRAM SCREENING WITH TOMOSYNTHESIS WITH CAD (BILATERAL) (11/30/2018 1:46 PM EDT) Anatomical Region Laterality Modality Breast Left, Breast Right, Breast Bilateral Bila teral Mammography 11/30/2018 2:17 PM EDT Impressions 11/30/2018 2:20 PM EDT No mammographic evidence of malignancy. Recommend routine annual surveillance. BI-RADS CATEGORY: 2 - Benign finding. DENSITY: There are scattered fibroglandular densities. POS - CDHMAMA Narrative 11/30/2018 2:20 PM EDT 63-year-old female with no current breast symptoms. Comparison made to previous on 11/29/2017 and as far back as 11/06/2012. Interpretation made in conjunction with computer-aided detection and tomosynthesis. There are scattered areas of fibroglandular density. Stable benign bilateral secretory calcifications. There are no suspicious masses, areas of architectural distortion, or suspicious clusters of microcalcifications. Procedure Note Tru Hanley MD - 11/30/2018 63-year-old female with no current breast symptoms. Comparison made toprevious on 11/29/2017 and as far back as 11/06/2012. Interpretation madein conjunction with computer-aided detection and tomosynthesis. There are scattered areas of fibroglandular density. Stable benignbilateral secretory calcifications. There are no suspicious masses, areas of architectural distortion, orsuspicious clusters of microcalcifications. IMPRESSION: No mammographic evidence of malignancy. Recommend routine annualsurveillance. BI-RADS CATEGORY: 2 - Benign finding. DENSITY: There are scattered fibroglandular densities. POS - CDHMAMA us Raheem Rodríguez DO IMG MG EXAMS Final Result documented in this encounter Visit Diagnoses Diagnosis Breast screening Breast screening, unspecified Breast screening Breast screening, unspecified Hx of colonic polyps Personal history of colonic polyps documented in this encounter Care Teams Amusement Park Ride Mechanic Relationship Specialty Start Date End Date Raheem Rodríguez DO [email or web address] PCP - General Internal Medicine 10/25/17 documented as of this encounter Additional Source Comments The information contained in this document represents components of the legal health record. It is not the complete legal health record.[facility]
--- OUTSIDE RECORDS SUMMARY | 2025-01-23 07:35 | XMS_ITS | Encounter Summary ---
Author Organization [facility] Address [address] [place] [address] [place] [address] Phone Care Team Providers Care Instructor Psychiatric Aide Name Role Phone Raheem Rodríguez Primary Care Provider [phone] Encounter Details Date Type Department Care Team (Late st Contact Info) Description 12/26/2020 Procedure Pass [address] [address] Social History Tobacco Use Types Packs/Day Years [...] st Contact Info) Description 12/27/2024 Procedure Pass [address] [address] 05/02/2025 Procedure Pass [facility] Endoscopy Admitting Dept Virtual Department [address] [place] [address] 05/02/2025 10:00 AM EST Hospital Encounter [facility] Endoscopy Admitting Dept Virtual Department [address] [place] [address] Jaime Lazo MD [address] [place] [address] 05/02/2025 10:00 AM EST - 05/02/2025 10:30 AM EST Surgery [facility] Endoscopy Admitting Dept Virtual Department 30 [place] [address] Jaime Lazo MD 10 [facility] 2 [place] [address] [email or web address] COLONOSCOPY 07/29/2025 4:00 PM EDT Appointment [facility], [facility]- [facility] 30 [place] [address] Raheem Rodríguez DO 179 [facility] [place] [address] [email or web address] Scheduled Procedures Name Priority Associated Diagnoses Date/Ti me COLONOSCOPY Hx of colonic polyps 05/02/2025 10:00 AM EST documented as of this encounter Visit Diagnoses Not on filedocumented in this encounter Care Teams Instructor Psychiatric Aide Relationship Specialty Start Date End Date Raheem Rodríguez DO [email or web address] PCP - General Internal Medicine 10/25/17 documented as of this encounter Additional Source Comments The information contained in this document represents components of the legal health record. It is not the complete legal health record.[facility]
--- OUTSIDE RECORDS SUMMARY | 2025-01-23 07:35 | XMS_ITS | Encounter Summary ---
Author Organization [facility] Address [address] [place] [address] [place] [address] Phone Care Team Providers Care Casework Manager Name Role Phone Raheem Rodríguez Primary Care Provider [phone] Encounter Details Date Type Department Care Team (Late st Contact Info) Description 10/15/2021 Procedure Pass [address] [address] Social History Tobacco Use Types Packs/Day Years [...] st Contact Info) Description 12/27/2024 Procedure Pass [address] [address] 05/02/2025 Procedure Pass [facility] Endoscopy Admitting Dept Virtual Department [address] [place] [address] 05/02/2025 10:00 AM EST Hospital Encounter [facility] Endoscopy Admitting Dept Virtual Department [address] [place] [address] Jaime Lazo MD [address] [place] [address] 05/02/2025 10:00 AM EST - 05/02/2025 10:30 AM EST Surgery [facility] Endoscopy Admitting Dept Virtual Department 30 [place] [address] Jiame Lazo MD 10 [facility] 2 [place] [address] COLONOSCOPY 07/29/2025 4:00 PM EDT Appointment [facility], [facility]- [facility] 30 [place] [address] Raheem Rodríguez DO 179 [place] [address] Scheduled Procedures Name Priority Associated Diagnoses Date/Ti me COLONOSCOPY Hx of colonic polyps 05/02/2025 10:00 AM EST documented as of this encounter Visit Diagnoses Not on filedocumented in this encounter Care Teams Casework Manager Relationship Specialty Start Date End Date Raheem Rodríguez DO PCP - General Internal Medicine 10/25/17 documented as of this encounter Additional Source Comments The information contained in this document represents components of the legal health record. It is not the complete legal health record.[facility]
--- OUTSIDE RECORDS SUMMARY | 2025-01-23 07:36 | XMS_ITS | Encounter Summary ---
Author Organization [facility] Address [address] [facility] [address] [place] [address] Phone Care Team Providers Care Sales Representative Meats Name Role Phone Luciisabel Raheem Espinoza DO Primary Care Provider [phone] Encounter Details Date Type Department Care Team (Late st Contact Info) Description 01/04/2024 Transcribe Orders Virtual Department [address] [place] [address] Raheem Rodríguez DO 179 [facility] [address] [place], [place] [phone] [email or web address] Breast screening (Primary Dx) Social History Tobacco Use Types Packs/Day Years Used Date Smoking Tobacco: Never Smokeless Tobacco: Never Alcohol Use Standard Drinks/Week Comments Yes 1 (1 standard drink = 0.6 oz pur e alcohol) Education Answer Date Recorded Are you interested [...] (Late Contact Info) Description 12/27/2024 Procedure Pass [facility] M[facility]- [facility] 30 [place] [address] 05/02/2025 Procedure Pass [facility] Endoscopy Admitting Dept Virtual Department [address] [place] [address] 05/02/2025 10:00 AM EST Hospital Encounter [facility] Endoscopy Admitting Dept Virtual Department [address] [place] [address] Jaime Lazo MD [address] [place] [address] [email or web address] 05/02/2025 10:00 AM EST - 05/02/2025 10:30 AM EST Surgery [facility] Endoscopy Admitting Dept Virtual Department [address] [place] [address] Jaime Lazo MD [address] [place] [address] [email or web address] COLONOSCOPY 07/29/2025 4:00 PM EDT Appointment [address] [address] Raheem Rodríguez, 179 [facility] [place] [address] [place] [address] [email or web address] Scheduled Procedures Name Priority Associated Diagnoses Date/Ti [...] notified of the results and recommendations. us Raheem Rodríguez DO IMG MG EXAMS Final Result documented in this encounter Visit Diagnoses Diagnosis Breast screening- Primary Breast screening, unspecified Breast screening Breast screening, unspecified Hx of colonic polyps Personal history of colonic polyps documented in this encounter Care Teams Sales Representative Meats Relationship Specialty Start Date End Date Raheem Rodríguez DO PCP - General Internal Medicine 10/25/17 documented as of this encounter Additional Source Comments The information contained in this document represents components of the legal health record. It is not the complete legal health record.[facility]
--- OUTSIDE RECORDS SUMMARY | 2025-01-23 07:36 | XMS_ITS | Encounter Summary ---
Author Organization [facility] Address [address] [facility] [address] [place] [address] Phone Care Team Providers Care Shoeblack Name Role Phone Luciisabel Raheem Espinoza DO Primary Care Provider [phone] Encounter Details Date Type Department Care Team (Late st Contact Info) Description 06/14/2023 Transcribe Orders Virtual Department [address] [place] [address] Raheem Rodríguez DO 179 [facility] [address] [place], [place] [phone] [email or web address] Age-related osteoporosis without current pathological fracture (Primary Dx) Social History Tobacco Use Types [...] (Late Contact Info) Description 12/27/2024 Procedure Pass [facility], [facility] 30 [place] [address] 05/02/2025 Procedure Pass [facility] Endoscopy Admitting Dept Virtual Department 30 [place] [address] 05/02/2025 10:00 AM EST Hospital Encounter [facility] Endoscopy Admitting Dept Virtual Department [address] [place] [address] Jaime Lazo MD [address] [place] [address] 05/02/2025 10:00 AM EST - 05/02/2025 10:30 AM EST Surgery [facility] Endoscopy Admitting Dept Virtual Department [address] [place] [address] Jaime Lazo MD [address] [place] [address] COLONOSCOPY 07/29/2025 4:00 PM EDT Appointment [address] [address] Raheem Rodríguez DO 179 [facility] [place] [address] Scheduled Procedures Name Priority Associated Diagnoses Date/Ti me COLONOSCOPY Hx of colonic polyps 05/02/2025 10:00 AM EST documented as of this encounter Visit Diagnoses Diagnosis Age-related osteoporosis without current pathological fracture- Primary Hx of colonic polyps Personal history of colonic polyps documented in this encounter Care Teams Shoeblack Relationship Specialty Start Date End Date Raheem Rodríguez DO PCP - General Internal Medicine 10/25/17 documented as of this encounter Additional Source Comments The information contained in this document represents components of the legal health record. It is not the complete legal health record.[facility]
--- OUTSIDE RECORDS SUMMARY | 2025-01-23 07:36 | XMS_ITS | Encounter Summary ---
Author Organization [facility] Address [address] [place] [address] Phone Care Team Providers Care Optical Laboratory Manager Name Role Phone Raheem Rodríguez DO Primary Care Provider [phone] Encounter Details Date Type Department Care Team (Latest Contact Info) Description 09/26/2019 Transcribe Orders [facility] 12 [place] [address] Kusum Wilkinson PA-C [address] [place] [address] Type 2 diabetes mellitus without complication, unspecified whether long term care pharmacist insulin use (Primary Dx) Social History Tobacco Use Types [...] st Contact Info) Description 12/27/2024 Procedure Pass [facility] 30 [place] [address] 05/02/2025 Procedure Pass [facility] Endoscopy Admitting Dept Virtual Department [address] [place] [address] 05/02/2025 10:00 AM [facility] Hospital Encounter [facility] Endoscopy Admitting Dept Virtual Department [address] [place] [address] Jaime Lazo MD [address] [place] [address] 05/02/2025 10:00 AM EST - 05/02/2025 10:30 AM EST Surgery [facility] Endoscopy Admitting Dept Virtual Department [address] [place] [address] Jaime Laoz MD 10 [facility] 2 [place] [address] [email or web address] COLONOSCOPY 07/29/2025 4:00 PM EDT Appointment [facility], [facility]- [address] [address] Raheem Rodríguez DO 179 [facility] [place] [address] [email or web address] Scheduled Procedures Name Priority Associated Diagnoses Date/Ti me COLONOSCOPY Hx of colonic polyps 05/02/2025 10:00 AM EST documented as of this encounter Results * (ABNORMAL) Hemoglobin A1c (09/26/2019 8:02 AM EDT) HEMOGLOBIN A1C 7.0(H) 4.3 - 5.8 % [facility] Blood 09/26/2019 8:02 AM EDT 09/26/2019 8:57 AM EDT August Minh [facility] BLOOD ORDERABLES Final R esult [address] [address] documented in this encounter Visit Diagnoses Diagnosis Type 2 diabetes mellitus without complication, unspecified whether long term care pharmacist insulin use- Primary Hx of colonic polyps Personal history of colonic polyps documented in this encounter Care Teams Optical Laboratory Manager Relationship Specialty Start Date End Date Raheem Rodríguez DO [email or web address] PCP - General Internal Medicine 10/25/17 documented as of this encounter Additional Source Comments The information contained in this document represents components of the legal health record. It is not the complete legal health record.[facility]
--- OUTSIDE RECORDS SUMMARY | 2025-01-23 07:36 | XMS_ITS | Encounter Summary ---
Author Organization [facility] Address [address] [facility] [address] [place] [address] Phone Care Team Providers Care Glassworker Name Role Phone Luciisabel Raheem Espinoza DO Primary Care Provider [phone] Encounter Details Date Type Department Care Team (Late Contact Info) Description 12/27/2024 Transcribe Orders Virtual Department 30 [place] [address] Raheem Rodríguez DO 179 [facility] [address] [place], [place] [phone] [email or web address] Breast screening (Primary Dx) Social History Tobacco [...] (Late Contact Info) Description 12/27/2024 Procedure Pass [facility]- [facility] 30 [place] [address] 05/02/2025 Procedure Pass [facility] Endoscopy Admitting Dept Virtual Department [address] [place] [address] 05/02/2025 10:00 AM EST Hospital Encounter [facility] Endoscopy Admitting Dept Virtual Department [address] [place] [address] Jaime Lazo MD [address] [address] 05/02/2025 10:00 AM EST - 05/02/2025 10:30 AM EST Surgery [facility] Endoscopy Admitting Dept Virtual Department [address] [place] [address] Jaime Lazo MD [address] [place] [address] COLONOSCOPY 07/29/2025 4:00 PM EDT Appointment [facility]- [address] [address] Raheem Rodríguez DO [address] [place] [address] [place] [address] [email or web address] Scheduled Orders Name Type Priority Associated Diagnoses Orde r Schedule Mammogram Screening (Bilateral) Imaging Routine Breast screening Expected: 01/27/2025, Expires: 12/27/2025 Scheduled Procedures Name Priority Associated Diagnoses Date/Ti me COLONOSCOPY Hx of colonic polyps 05/02/2025 10:00 AM EST documented as of this encounter Visit Diagnoses Diagnosis Breast screening- Primary Breast screening, unspecified Hx of colonic polyps Personal history of colonic polyps documented in this encounter Care Teams Glassworker Relationship Specialty Start Date End Date Raheem Rodríguez DO PCP - General Internal Medicine 10/25/17 documented as of this encounter Additional Source Comments The information contained in this document represents components of the legal health record. It is not the complete legal health record.[facility]
--- OUTSIDE RECORDS SUMMARY | 2025-01-23 07:36 | XMS_ITS | Encounter Summary ---
Author Organization [facility] Address [address] [facility] [address] [place] [address] Phone Care Team Providers Care Mill Representative Name Role Phone Raheem Rodríguez Primary Care Provider Encounter Details Date Type Department Care Team (Late st Contact Info) Description 10/25/2017 Ancillary Orders Virtual Department [address] [place] [address] Raheem Rodríguez DO [address] [facility] [place] [address] [place] [address] Breast screening Social History Tobacco Use Types Packs/Day Years Used Date Smoking Tobacco: Never Assessed Comments Unknown Sex and Gender Information Value Date Recorded Sex Assigned at Not on file Legal Sex Female 9:56 PM EDT Gender Identity Not on file Sexual Orientation Not on file documented as of this encounter Plan of Treatment Upcoming Encounters Date Type Department Care Team (Late st Contact Info) Description 12/27/2024 Procedure Pass [facility], [address] [address] 05/02/2025 Procedure Pass [facility] Endoscopy Admitting Dept Virtual Department [address] [place] [address] 05/02/2025 10:00 AM [facility] Hospital Encounter [facility] Admitting Dept Virtual Department [address] [place] [address] Jaime Lazo MD [address] [place] [address] 05/02/2025 10:00 AM EST - 05/02/2025 10:30 AM EST Surgery [facility] Endoscopy Admitting Dept Virtual Department [address] [place] [address] Jaime Lazo MD [address] [facility] 2 [place] [address] COLONOSCOPY 07/29/2025 4:00 PM EDT Appointment [facility], [facility] 30 [place] [address] Raehem Rodríguez, [address] [facility] [place] [address] [place] [address] Scheduled Procedures Name Priority Associated Diagnoses Date/Ti me COLONOSCOPY Hx of colonic polyps 05/02/2025 10:00 AM EST documented as of this encounter Results * BI MAMMOGRAM SCREENING WITH TOMOSYNTHESIS WITH CAD (BILATERAL) (11/29/2017 2:53 PM EDT) Anatomical Region Laterality Modality Breast Left, Breast Right, Breast Bilateral Bila teral Mammography 11/30/2017 8:34 AM EDT Impressions 11/30/2017 8:39 AM EDT BILATERAL BREASTS: Benign, no evidence of malignancy. Normal interval follow-up is recommended in 12 months. BI-RADS CATEGORY: 2 - Benign finding. DENSITY: There are scattered fibroglandular densities. POS - [id number] Narrative 11/30/2017 8:39 AM EDT STUDY: Bilateral screening mammography with tomosynthesis and CAD TECHNIQUE: Bilateral full-field digital screening mammography is obtained and read in conjunction with computer-aided detection. Tomosynthesis as well as 2-D C view imaging were obtained. COMPARISON: Comparison made to multiple prior, most recent November 25, 2016, and most remote October 02, 2011. BREAST COMPOSITION: There are scattered areas of fibroglandular density BILATERAL BREASTS: Bilateral diffusely distributed rodlike calcifications are not significantly changed from 2011. No significant masses, calcifications or other abnormalities are seen. Procedure Note Sanju Merrill MD - 11/30/2017 STUDY: Bilateral screening mammography with tomosynthesis and CAD TECHNIQUE: Bilateral full-field digital screening mammography is obtainedand read in conjunction with computer-aided detection. Tomosynthesis aswell as 2-D C view imaging were obtained. COMPARISON: Comparison made to multiple prior, most recent November 25, 2016,and most remote October 02, 2011. BREAST COMPOSITION: There are scattered areas of fibroglandulardensity BILATERAL BREASTS: Bilateral diffusely distributed rodlike calcificationsare not significantly changed from 2012. No significant masses,calcifications or other abnormalities are seen. IMPRESSION: BILATERAL BREASTS: Benign, no evidence of malignancy. Normal intervalfollow-up is recommended in 12 months. BI-RADS CATEGORY: 2 - Benign finding. DENSITY: There are scattered fibroglandular densities. POS - [id number] Raheem Rodríguez DO IMG MG EXAMS Final Result documented in this encounter Visit Diagnoses Diagnosis Breast screening Breast screening, unspecified Breast screening Breast screening, unspecified Hx of colonic polyps Personal history of colonic polyps documented in this encounter Care Teams Mill Representative Relationship Specialty Start Date End Date Raheem Rodríguez DO [email or web address] PCP - General Internal Medicine 10/25/17 documented as of this encounter Additional Source Comments The information contained in this document represents components of the legal health record. It is not the complete legal health record.[facility]
--- OUTSIDE RECORDS SUMMARY | 2025-01-23 07:36 | XMS_ITS | Encounter Summary ---
Author Organization [facility] Address [address] [place] [address] Phone Care Team Providers Care Gang Ripsaw Operator Name Role Phone Raheem Rodríguez Primary Care Provider [phone] Encounter Details Date Type Department Care Team (Late st Contact Info) Description 01/04/2024 Procedure Pass [address] [address] Social History Tobacco Use Types Packs/Day Years [...] st Contact Info) Description 12/27/2024 Procedure Pass [address] [address] 05/02/2025 Procedure Pass [facility] Endoscopy Admitting Dept Virtual Department [address] [place] [address] 05/02/2025 10:00 AM EST Hospital Encounter [facility] Endoscopy Admitting Dept Virtual Department [address] [place] [address] Jaime Lazo MD [address] [place] [address] 05/02/2025 10:00 AM EST - 05/02/2025 10:30 AM EST Surgery [facility] Endoscopy Admitting Dept Virtual Department [address] [place] [address] Jaime Lazo MD [address] [place] [address] COLONOSCOPY 07/29/2025 4:00 PM EDT Appointment [facility], [address] [address] Raheem Rodríguez, [address] [place] [address] [email or web address] Scheduled Procedures Name Priority Associated Diagnoses Date/Ti me COLONOSCOPY Hx of colonic polyps 05/02/2025 10:00 AM EST documented as of this encounter Visit Diagnoses Not on filedocumented in this encounter Care Teams Gang Ripsaw Operator Relationship Specialty Start Date End Date Raheem Rodríguez DO PCP - General Internal Medicine 10/25/17 documented as of this encounter Additional Source Comments The information contained in this document represents components of the legal health record. It is not the complete legal health record.[facility]
--- OUTSIDE RECORDS SUMMARY | 2025-01-23 07:36 | XMS_ITS | Encounter Summary ---
Author Organization [facility] Address [address] [facility] [address] [place] [address] Phone Care Team Providers Care Quality Improvement Engineer Name Role Phone Luciisabel Raheem Espinoza DO Primary Care Provider [phone] Encounter Details Date Type Department Care Team (Late st Contact Info) Description 02/01/2023 Transcribe Orders Virtual Department [address] [place] [address] Raheem Rodríguez DO [address] [facility] [address] [place], [place] [phone] [email or web address] Breast screening (Primary Dx) Social History Tobacco [...] (Late Contact Info) Description 12/27/2024 Procedure Pass [facility] [address] [place] [address] 05/02/2025 Procedure Pass [facility] Endoscopy Admitting Dept Virtual Department [address] [place] [address] 05/02/2025 10:00 AM EST Hospital Encounter [facility] Endoscopy Admitting Dept Virtual Department [address] [place] [address] Jaime Lazo MD [address] [place] [address] [email or web address] 05/02/2025 10:00 AM EST - 05/02/2025 10:30 AM EST Surgery [facility] Endoscopy Admitting Dept Virtual Department [address] [place] [address] Jaime Lazo MD [address] [place] [address] [email or web address] COLONOSCOPY 07/29/2025 4:00 PM EDT Appointment [address] [address] Raheem Rodríguez, [address] [facility] [place] [address] [place] [address] [email or web address] Scheduled Procedures Name Priority Associated Diagnoses Date/Ti me COLONOSCOPY Hx of colonic polyps 05/02/2025 10:00 AM EST documented as of this encounter Results * BI MAMMOGRAM SCREENING WITH TOMOSYNTHESIS WITH CAD (BILATERAL) (03/07/2023 2:17 PM EDT) Anatomical Region Laterality Modality Breast Left, Breast Right, Breast Bilateral Bila teral Mammography 03/10/2023 9:5 6 AM EDT Impressions 03/10/2023 9:59 AM EDT No specific mammographic evidence of malignancy in either breast. Annual screening mammography is recommended. BI-RADS CATEGORY: 1 - Negative. The patient will be notified of the results and recommendations. Narrative 03/10/2023 9:59 AM EDT BI MAMMOGRAM SCREENING WITH TOMOSYNTHESIS WITH CAD (BILATERAL) Additional patient information: Screening. COMPARISON: Comparison is made with relevant prior imaging. Breast composition: There are scattered fibroglandular densities. FINDINGS: There has been no change in the mammographic findings since previous examination. No abnormal masses, suspicious calcifications, or other significant findings are identified mammographically in either breast. Procedure Note Moon Fitzpatrick MD, PhD - 03/10/2023 BI MAMMOGRAM SCREENING WITH TOMOSYNTHESIS WITH CAD (BILATERAL) Additional patient information: Screening. COMPARISON: Comparison is made with relevant prior imaging. Breast composition: There are scattered fibroglandular densities. FINDINGS: There has been no change in the mammographic findings since previousexamination. No abnormal masses, suspicious calcifications, or other significantfindings are identified mammographically in either breast. IMPRESSION: No specific mammographic evidence of malignancy in either breast. Annual screening mammography is recommended. BI-RADS CATEGORY: 1 - Negative. The patient will be notified of the results and recommendations. Raheem Rodríguez DO IMG MG EXAMS Final Result documented in this encounter Visit Diagnoses Diagnosis Breast screening- Primary Breast screening, unspecified Breast screening Breast screening, unspecified Hx of colonic polyps Personal history of colonic polyps documented in this encounter Care Teams Quality Improvement Engineer Relationship Specialty Start Date End Date Raheem Rodríguez DO PCP - General Internal Medicine 10/25/17 documented as of this encounter Additional Source Comments The information contained in this document represents components of the legal health record. It is not the complete legal health record.[facility]
--- OUTSIDE RECORDS SUMMARY | 2025-01-23 07:36 | XMS_ITS | Encounter Summary ---
Author Organization [facility] Address [address] [facility] [address] [place] [address] Phone Care Team Providers Care Service Order Dispatcher Chief Name Role Phone Luciisabel Abigail Espinoza DO Primary Care Provider [phone] Encounter Details Date Type Department Care Team (Late Contact Info) Description 03/05/2024 Transcribe Orders [facility] Department [address] [place] [address] Abigail Mccray DO [address] [facility] [address] [place], [place] [phone] [email or web address] Encounter for screening for osteoporosis (Primary Dx) Social History Tobacco Use Types [...] (Late Contact Info) Description 12/27/2024 Procedure Pass [facility], [facility] [address] [place] [address] 05/02/2025 Procedure Pass [facility] Endoscopy Admitting Dept Virtual Department [address] [place] [address] 05/02/2025 10:00 AM EST Hospital Encounter [facility] Endoscopy Admitting Dept Virtual Department [address] [place] [address] Jaime Lazo MD [address] [place] [address] 05/02/2025 10:00 AM EST - 05/02/2025 10:30 AM EST Surgery [facility] Endoscopy Admitting Dept Virtual Department [address] [place] [address] Jaime Lazo MD [address] [place] [address] COLONOSCOPY 07/29/2025 4:00 PM EDT Appointment [address] [address] Abigail Mccray, DO [address] [facility] [address] [email or web address] Scheduled Procedures Name Priority Associated Diagnoses Date/Ti me COLONOSCOPY Hx of colonic polyps 05/02/2025 10:00 AM EST documented as of this encounter Results * BD DXA AXIAL (SPINE) WITH HIP (12/17/2024 2:01 PM EDT) Anatomical Region Laterality Modality Bone Density Bone Density 12/17/2024 2:00 PM EDT Impressions 12/17/2024 8:33 PM EDT Interpretation: Osteopenia. Narrative 12/17/2024 8:33 PM EDT Referred By: ABIGAIL MCCRAY Scanner: Moodsnap A with serial# of [id number] located at [facility] Bone Density Scan (DXA) 12/17/24 Details of [...] -2.5), or Osteoporosis (T-score <= -2.5). At [facility], T-scores are compared to peak bone density [...] - 12/17/2024 Referred By: ABIGAIL MCCRAY Scanner: Moodsnap A with serial# of [id number] located at [facility] Bone Density Scan (DXA) 12/17/24 Details of [...] -2.5), or Osteoporosis (T-score <= -2.5). At [facility], T-scores are compared to peak bone density [...] documented in this encounter Visit Diagnoses Diagnosis Encounter for screening for osteoporosis- Primary Encounter for screening for osteoporosis Hx of colonic polyps Personal history of colonic polyps documented in this encounter Care Teams Service Order Dispatcher Chief Relationship Specialty Start Date End Date Abigail Mccray DO [email or web address] PCP - General Internal Medicine 10/25/17 documented as of this encounter Additional Source Comments The information contained in this document represents components of the legal health record. It is not the complete legal health record.[facility]
--- OUTSIDE RECORDS SUMMARY | 2025-01-23 07:36 | XMS_ITS | Encounter Summary ---
Author Organization [facility] Address [address] [place] [address] Phone Care Team Providers Care Commercial Insulator Name Role Phone Raheem Rodríguez Primary Care Provider [phone] Encounter Details Date Type Department Care Team (Late st Contact Info) Description 02/01/2023 Procedure Pass [address] [address] Social History Tobacco Use Types Packs/Day Years [...] Contact Info) Description 12/27/2024 Procedure Pass [address] [address] 05/02/2025 Procedure Pass [facility] Endoscopy Admitting Dept Virtual Department [address] [place] [address] 05/02/2025 10:00 AM EST Hospital Encounter [facility] Endoscopy Admitting Dept Virtual Department [address] [place] [address] Jaime Lazo MD [address] [place] [address] 05/02/2025 10:00 AM EST - 05/02/2025 10:30 AM EST Surgery [facility] Endoscopy Admitting Dept Virtual Department [address] [place] [address] Jaime Lazo MD [address] [place] [address] COLONOSCOPY 07/29/2025 4:00 PM EDT Appointment [facility], [address] [address] Raheem Rodríguez, [address] [place] [address] Scheduled Procedures Name Priority Associated Diagnoses Date/Ti me COLONOSCOPY Hx of colonic polyps 05/02/2025 10:00 AM EST documented as of this encounter Visit Diagnoses Not on filedocumented in this encounter Care Teams Commercial Insulator Relationship Specialty Start Date End Date Raheem Rodríguez DO PCP - General Internal Medicine 10/25/17 documented as of this encounter Additional Source Comments The information contained in this document represents components of the legal health record. It is not the complete legal health record.[facility]
[2025-01-23 14:12] LABS: Hemoglobin A1C 147.0815 umol/L; Total Hemoglobin (HGBA1C) 3229.6796 umol/L
== END 2025-01-23 07:33 | disposition home or self-care (01) ==
LOC: HO.MANLDS 07:32
PROVIDERS: Visit Provider Internal Medicine
DX: Z00.00 Encounter for general adult medical examination without abnormal findings (principal); E11.9 Type 2 diabetes mellitus without complications
CPT/HCPCS: 36415; 83036